=== PATIENT | female | born 1950 | race Caucasian/White ===

== ENCOUNTER → 2019-02-02 | Outpatient (CLI) | payer MEDICARE ==
[2017-02-07 14:51] VITALS: BP 106/52
[~2019-02-02] MED LIST: AMLO5TAB10 PO; BUDE0.5A NEB; BUPR100T7 PO; CEFP100T PO; ENAL20TA4 PO; HYDR50TA6 PO; IPRA3AMP29 NEB; MONT10TA9 PO; MULT-208 PO; PRED20TA PO
--- NOTE | 2019-02-02 16:16 | RAD ---
Chest, 2 views, 02/02/2019: HISTORY: Cough The heart size is normal. There is a calcified granuloma in the left upper lobe. There is an abnormal density projected along the posterior aspect of the right hilum. There is mild linear scarring or atelectasis in the lung bases. No pleural fluid is seen. Moderate hypertrophic spurring is present in the spine. IMPRESSION: Right parahilar mass raising the possibility of malignancy. CT scanning is suggested for further evaluation. Electronically signed by: Felipe Busby MD (02/02/2019 4:13 PM) [facility]
== END | disposition home or self-care (01) ==
LOC: RAD 14:20
PROVIDERS: ATTEND Family Medicine
DX: J84.10 Pulmonary fibrosis, unspecified (principal); J44.9 Chronic obstructive pulmonary disease, unspecified; M89.38 Hypertrophy of bone, other site; M46.00 Spinal enthesopathy, site unspecified
CPT/HCPCS: 71046

== ENCOUNTER → 2019-02-10 | Outpatient (CLI) | payer MEDICARE ==
[2017-02-07 14:51] VITALS: BP 106/52
[~2019-02-10] MED LIST changes: +CONTRAST GIVEN. MC PRN; +IOHEXOL 300 MG/ML 100ML VIAL. IV ONE
--- NOTE | 2019-02-10 11:35 | RAD ---
EXAM: CT Chest with IV contrast CLINICAL HISTORY: Abnormality on prior chest radiograph. Right hilar mass.. COMPARISON: Chest radiograph 02/02/2019, 02/02/2017, CT chest 02/05/2017. TECHNIQUE: CT of the chest following the administration of intravenous contrast. Axial, coronal and sagittal reformatted images were generated. ---PQRS compliance statement - One or more of the following individualized dose reduction techniques were utilized for this study: 1. Automated exposure control 2. Adjustment of the mA and/or kV according to patient size 3. Use of iterative reconstruction technique--- FINDINGS: CHEST: The heart is not enlarged. No pericardial effusion. Coronary artery calcifications are seen. No pleural effusion or pneumothorax. Subcarinal lymph node is enlarged measuring 2.4 x 1.2 cm. A relatively hypodense right hilar lymph node, measures 2.1 x 1.6 cm, possibly necrotic given the low density. No axillary lymphadenopathy. A right posterior hilar mass is seen measuring 4.2 x 5.8 x 5.4 cm (AP by transverse by craniocaudal). Associated groundglass opacity is seen surrounding this mass. Linear opacities in the lower lobes, lingula and middle lobe likely scarring/atelectasis. Background of emphysematous change. Central airways are otherwise patent. Left upper lobe calcified granuloma is seen. An 8 x 4 mm middle lobe lung nodule (series 2 image 40) is seen. The thyroid is grossly unremarkable. Visualized Upper abdomen: Cholecystectomy clips are seen. Relative hepatic hypoattenuation likely hepatic steatosis. Small splenule is seen. A 2.5 x 1.7 cm left adrenal nodule is seen. A 9 mm right adrenal nodule is seen. These both measure greater than expected for adenoma. Bilateral upper pole hypodense renal lesions are too small to characterize. Hypodense left hepatic lobe lesion is seen. Bones: Endplate osteophytes are seen. Multilevel degenerative changes of the spine are seen. IMPRESSION: 1. Right posterior hilar mass with groundglass opacities is suspicious for malignancy. Central low attenuation likely from central necrosis. This lesion would be amenable to percutaneous image guided biopsy. 2. Enlarged right hilar and mediastinal lymph nodes are seen. 3. Bilateral adrenal nodules are seen left greater than right. Given the lung mass, metastasis is a consideration. 4. Hypodense hepatic and renal lesions are too small to accurately characterize. Electronically signed by: Asif Vu MD (02/10/2019 11:32 AM) [id number]
== END | disposition home or self-care (01) ==
LOC: CT 10:20
PROVIDERS: ATTEND Family Medicine
DX: R91.1 Solitary pulmonary nodule (principal); J43.9 Emphysema, unspecified; J84.10 Pulmonary fibrosis, unspecified; E27.8 Other specified disorders of adrenal gland; N28.89 Other specified disorders of kidney and ureter; R59.0 Localized enlarged lymph nodes; M25.78 Osteophyte, vertebrae; M47.819 Spondylosis without myelopathy or radiculopathy, site unspecified; Z90.49 Acquired absence of other specified parts of digestive tract
CPT/HCPCS: 71260; Q9967

== ENCOUNTER → 2019-02-17 | Day surgery (SDC) | payer MEDICARE ==
[~2019-02-17] MED LIST changes: +ACET325T9 PO; +ALBUTEROL SULFATE 2.5 MG/3 ML NEBU. NEB PRN; -CONTRAST GIVEN. MC PRN; +EPINEPHrine 1 MG/ML VIAL INJ PRN; -IOHEXOL 300 MG/ML 100ML VIAL. IV ONE; +IV RINGERS,LACTATED 1000ML 1,000 ML IV SCH; +LIDOCAINE 1% Multi-Dose 20 ML VIAL. INJ PRN; +LIDOCAINE 1% PF 2 ML VIAL. ID PRN; +LIDOCAINE 2% PF 5 ML VIAL. ONE; +LIDOCAINE 2% VISCOUS 100 ML BOTTLE. MM PRN; +LIDOCAINE 4% TOPICAL 50 ML SOLUTION. MM PRN; +MIDAZOLAM HCL/PF 2 MG/2 ML VIAL. IV PRN; +MONT10TA49 PO; -MONT10TA9 PO; +PHENYLEPHRINE 10 MG/ML VIAL. ONE; +PROPOFOL 40 ML IV ONE; +fentaNYL PF VIAL 100 MCG/2 ML VIAL IV PRN
[2019-02-17 14:31] VITALS: BP 139/75
--- NOTE | 2019-02-17 18:38 | OP ---
DATE OF SURGERY: PROCEDURE: Bronchoscopy. INDICATION: Abnormal CT chest with hilar mass. DESCRIPTION OF PROCEDURE: Informed consent was obtained from the patient. All risks and benefits were explained. She agreed to proceed with the procedure. Propofol was used by Anesthesia for sedation. Bronch was introduced through the left nostril. The upper airway was passed. Vocal cords were reached. No abnormalities seen. Trachea was entered. No tracheal lesions seen. Michell was sharp. Right lung was first examined. No endobronchial lesions seen in the right upper lobe or right middle lobe. However, there was a smooth growth causing complete occlusion of the superior subsegment of the right lower lobe. Biopsies x 3 and cytology brush x 1 was performed from this area. Bronchoalveolar lavage was performed from the right middle lobe. The left lung appeared normal with no endobronchial lesions seen in the left upper lobe, lingula or left lower lobe. The patient tolerated the procedure well. IMPRESSION: 1. Smooth soft tissue growth seen at the superior subsegment of the right lower lobe causing complete occlusion. It could be carcinoid versus neoplasm versus an endobronchial granuloma. 2. Status post biopsies x 3 performed. Follow the results. 3. The patient to follow with Dr. James. If the biopsies are nondiagnostic, then adrenal gland biopsies can be performed next. MICHELLE BENAVIDEZ MD DR: RICK/nts JOB#: [id number] / [id number]
--- NOTE | 2019-02-21 12:06 | PATHOLOGY ---
[facility] Accession Number: [id number] . 01 Material submitted: . bronchus - BRONCH BIOPSY RLL SUPERIOR SEGMENT. Modifiers: right, lower lobe . 01 Clinical history: . Lung mass . 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 SEE COMMENT. . (SHA:[facility]; 02/21/2019) QMS/02/21/2019 . 02 Comment: The immunoperoxidase stains: . AE1/AE3: Positive LCA: Negative CD56: Positive TTF-1: Positive CK7: Positive Synaptophysin: non reactive . Based on these immunoperoxidase stains the findings are consistent with small cell carcinoma. . This case is also reviewed by Dr. Ruben Pacheco. . Dr Aretha James on 02/21/2019 at 11:30 am. . . (SHA:[facility]; 02/21/2019) . 02 Electronically signed: . Apolinar Lewis MD, Pathologist NPI- [id number] . 01 Gross description: . Received in formalin labeled "Rob, Becka, BBX RLL," and additionally labeled on the requisition as "superior segment," are 3 segments of pearce soft tissue measuring 0.5 x 0.5 x 0.1 cm in aggregate dimensions and ranging from 0.1 to 0.3 cm in maximum dimension. The specimen is submitted entirely in cassette A1. (TSD; 02/17/2019) TOB/TOB . 02 Pathologist provided ICD-10: C34.31 . 02 CPT . 279452, I29235, O63870 Specimen Comment: A courtesy copy of this report has been sent to Specimen Comment: [phone], . Specimen Comment: Report sent to / DR NELSON Performed at: 01 [facility] [address], [place], [place] [id number] MD Alexander Cuellar MD Phone: [phone] Performed at: 02 [facility] [address] [place], [place] [id number] MD Ruben Pacheco MD Phone: [phone]
--- NOTE | 2019-02-21 16:09 | PATHOLOGY ---
Note [facility] Accession Number: [id number] TESTS RESULT FLAG UNITS REF RANGE LAB Clinician Provided Cytology Information No. of containers..01 Other (Miscellaneous) Source: RML BAL DIAGNOSIS: RML BAL INCONCLUSIVE. COMMENT, FEW ATYPICAL CELLS PRESENT. NOT DIAGNOSTIC. Signed out by: Apolinar Lewis MD, Pathologist NPI- [id number] Performed by: Yenifer Cruz, Rf Engineer ([facility]) Gross description: 01 1ML, COLORLESS, CLEAR /LCS FLAG LEGEND: L-Low Normal,H-High Normal,LL-Alert Low,HH-Alert High <-Panic Low,>-Panic High,A-Abnormal,AA-Critical Abnormal Performed at: [address] [place] [address] Alexander Cuellar MD, 02 [facility] [address] [place] [address] Ruben Pacheco MD, Specimen Comment: A courtesy copy of this report has been sent to Specimen Comment: [phone], . Specimen Comment: Report sent to DR BENAVIDEZ / DR NELSON Specimen Comment: A duplicate report has been generated due to demographic updates. Performed at: [address] [place] [address] [address], [place], [place] [id number] MD Alexander Cuellar MD Phone: [phone]
--- NOTE | 2019-02-21 16:09 | PATHOLOGY ---
Note [facility] Accession Number: [id number] TESTS RESULT FLAG UNITS REF RANGE LAB Clinician Provided Cytology Information No. of containers..01 Other (Miscellaneous) Source: [A] 01 CYTO BRUSH TIP DIAGNOSIS: [A] 02 CYTO BRUSH TIP SUSPICIOUS FOR MALIGNANCY. COMMENT, MALIGNANT APPEARING SMALL CELLS SEEN CONSISTENT WITH SMALL CELL CARCINOMA CORRELATED WITH SURGICAL BIOPSY AND DISCUSSED WITH DR. ZAMBRANO ON 02/21/2019 AT 10AM. Signed out by: 02 Apolinar Lewis MD, Pathologist NPI- [id number] Performed by: Yenifer Cruz, K9 Handler ([facility]) Gross description: 01 45ML, COLORLESS, CLEAR /LCS FLAG LEGEND: L-Low Normal,H-High Normal,LL-Alert Low,HH-Alert High <-Panic Low,>-Panic High,A-Abnormal,AA-Critical Abnormal Performed at: [facility] [address] [place] [address] Alexander Cuellar MD, 02 [facility] [address] [place] [address] Ruben Pacheco MD, Specimen Comment: A courtesy copy of this report has been sent to Specimen Comment: [phone], . Specimen Comment: Report sent to / DR NELSON Specimen Comment: A duplicate report has been generated due to demographic updates. Performed at: 01 [facility] [address], [place], [place] [id number] MD Alexander Cuellar MD Phone: [phone]
--- NOTE | 2019-02-21 16:09 | PATHOLOGY ---
Note [facility] Accession Number: [id number] TESTS RESULT FLAG UNITS REF RANGE LAB Clinician Provided Cytology Information No. of containers..01 Slide Source: [A] 01 RLL BRONCH BRUSHING DIAGNOSIS: [A] 02 RLL BRONCH BRUSHING SUSPICIOUS FOR MALIGNANCY. COMMENT, FEW SMALL ROUND CELLS SEEN SUSPICIOUS FOR MALIGNANCY. CORRELATE WITH SURGICAL BIOPSY. Signed out by: 02 Apolinar Lewis MD, Pathologist NPI- [id number] Performed by: 01 Yenifer Cruz, Materials Supervisor ([facility]) FLAG LEGEND: L-Low Normal,H-High Normal,LL-Alert Low,HH-Alert High <-Panic Low,>-Panic High,A-Abnormal,AA-Critical Abnormal Performed at: [address] [place] [address] Alexander Cuellar MD, 02 [facility] [address] [place] [address] Ruben Pacehco MD, Specimen Comment: A courtesy copy of this report has been sent to Specimen Comment: [phone], . Specimen Comment: Report sent to DR BENAVIDEZ / DR NELSON Specimen Comment: A duplicate report has been generated due to demographic updates. Performed at: [address] [place] [address] [address], [place], [place] [id number] MD Alexander Cuellar MD Phone: [phone]
== END | disposition home or self-care (01) ==
LOC: SURG 12:01
PROVIDERS: ATTEND Internal Medicine Critical Care Medicine
DX: J98.4 Other disorders of lung (principal); R91.1 Solitary pulmonary nodule; J44.9 Chronic obstructive pulmonary disease, unspecified; I10 Essential (primary) hypertension; Z87.891 Personal history of nicotine dependence; Z98.890 Other specified postprocedural states
CPT/HCPCS: 31623; 31624; 31625; 36415; 87070; 87205; 88104; 88112; 88305; 88341; 88342; 94640; J0171; J2001; J2704; J7613; 31622

== ENCOUNTER → 2019-02-25 | Outpatient (CLI) | payer MEDICARE ==
[2019-02-17 14:31] VITALS: BP 139/75
[~2019-02-25] MED LIST changes: -ACET325T9 PO; -ALBUTEROL SULFATE 2.5 MG/3 ML NEBU. NEB PRN; -EPINEPHrine 1 MG/ML VIAL INJ PRN; +GADOTERATE 7.5 MMOL/15ML VIAL. IVP ONE; -IV RINGERS,LACTATED 1000ML 1,000 ML IV SCH; -LIDOCAINE 1% Multi-Dose 20 ML VIAL. INJ PRN; -LIDOCAINE 1% PF 2 ML VIAL. ID PRN; -LIDOCAINE 2% PF 5 ML VIAL. ONE; -LIDOCAINE 2% VISCOUS 100 ML BOTTLE. MM PRN; -LIDOCAINE 4% TOPICAL 50 ML SOLUTION. MM PRN; -MIDAZOLAM HCL/PF 2 MG/2 ML VIAL. IV PRN; -MONT10TA49 PO; +MONT10TA9 PO; -PHENYLEPHRINE 10 MG/ML VIAL. ONE; -PROPOFOL 40 ML IV ONE; -fentaNYL PF VIAL 100 MCG/2 ML VIAL IV PRN
--- NOTE | 2019-02-25 10:19 | RAD ---
MRI of the Brain without and with Contrast 02/25/2019 Clinical History: Metastatic lung cancer. Technique: Unenhanced T1-weighted sagittal and axial and FLAIR, T2-weighted, gradient echo and diffusion-weighted axial images of the brain were obtained. After the intravenous administration of 19 cc of Dotarem, enhanced T1-weighted axial, sagittal and coronal images of the brain were obtained. Findings: There is generalized parenchymal atrophy. Patchy and several small focal areas of abnormally increased signal intensity are seen within the periventricular and subcortical white matter of both cerebral hemispheres along with the gregory on the FLAIR and T2-weighted images consistent with areas of small vessel ischemic disease. No acute parenchymal abnormality is seen. No abnormal area of contrast enhancement is noted. No extra-axial fluid collection is seen. There is no MRI evidence of acute ischemia/infarction. Mild mucosal thickening is seen scattered throughout the paranasal sinuses. There is a small left mastoid effusion. Normal flow voids are seen within the major vascular structures surrounding the brain parenchyma. Impression: No acute parenchymal abnormality is seen. There is no MRI evidence of metastatic disease involving the brain parenchyma. Electronically signed by: Kale Albert MD (02/25/2019 10:17 AM) [facility]
== END | disposition home or self-care (01) ==
LOC: MRI 08:30
PROVIDERS: ATTEND Internal Medicine Hematology & Oncology
DX: G31.9 Degenerative disease of nervous system, unspecified (principal); C34.90 Malignant neoplasm of unspecified part of unspecified bronchus or lung
CPT/HCPCS: 70553; A9575

== ENCOUNTER → 2019-03-10 | Outpatient (CLI) | payer MEDICARE ==
[2019-02-17 14:31] VITALS: BP 139/75
[~2019-03-10] MED LIST changes: -GADOTERATE 7.5 MMOL/15ML VIAL. IVP ONE; +MONT10TA49 PO; -MONT10TA9 PO
--- NOTE | 2019-03-10 12:53 | RAD ---
FDG tumor localization scan, PET/CT, 03/10/2019: HISTORY: Lung mass Following IV injection of 15.3 mCi of 18 F-FDG, imaging was performed from the skull base to the proximal thighs. The noncontrast CT component was performed for attenuation correction and anatomic localization purposes rather than for primary diagnosis. The patient's blood glucose level at the time of injection was 152 MG/DL. Physiologic activity is present in the neck. No hypermetabolic neck lesion is identified. The patient's known large 5.8 cm right lower lobe mass along the posterior aspect of the right hilum is hypermetabolic demonstrating a maximum SUV of 10.9. There appears to be direct extension into the mediastinum in the azygos esophageal region. There is nearby subcarinal adenopathy with a maximum SUV of 5.5. There is increased FDG uptake more superiorly in the right hilum compatible with adenopathy. There is a smaller focus of slightly increased activity in the azygos/paratracheal region. No other abnormal pulmonary FDG uptake is seen. Normal GI tract and urinary tract activity is present in the abdomen and pelvis. No hypermetabolic abdominal or pelvic lesion is identified. The CT component demonstrates a left adrenal nodule which is not hypermetabolic. On the noncontrast CT study demonstrates an internal CT number of 8 Hounsfield units. The findings are compatible with a benign adenoma. Slight thickening of the right adrenal gland is also not hypermetabolic. IMPRESSION: 1. Hypermetabolic right lower lobe pulmonary mass compatible with a primary lung malignancy with right hilar and mediastinum hypermetabolic adenopathy.. 2. Small bilateral adrenal nodules are not hypermetabolic suggesting a benign etiology.
== END | disposition home or self-care (01) ==
LOC: PETSC 09:00
PROVIDERS: ATTEND Internal Medicine Pulmonary Disease
DX: R91.8 Other nonspecific abnormal finding of lung field (principal); E27.9 Disorder of adrenal gland, unspecified
CPT/HCPCS: 78815; A9552

== ENCOUNTER → 2019-06-16 | Outpatient (CLI) | payer MEDICARE ==
[2019-03-20 15:00] VITALS: BP 156/85
[~2019-06-16] MED LIST changes: +ACET325T9 PO; +HYDR-3164 PO; +OMEP40CA5 PO
--- NOTE | 2019-06-17 13:31 | RAD ---
Examination: PET W CT SKULL TO MIDTHIGH History: Lung cancer restaging Comparison/Correlation: 03/10/2019 PET/CT exam skull base to proximal thigh FINDINGS: Net dose 16.2 mCi F-18 FDG was administered intravenously for purposes of PET/CT exam. Blood glucose level at the time of radiotracer administration was 158 mg/dL. Imaging was performed from the skull base to the proximal thighs. Hepatic reference uptake is SUV max of 2.6 . Uptake of radiotracer involving the head and neck is unremarkable. The right lower lobe posterior to the right hilum, there is a low-attenuation mass measuring 2.6 cm x 2.4 cm. The SUV max is 3. No new pulmonary nodules or masses. No enlarged thoracic lymph nodes or suspicious uptake involving the mediastinum or gayle otherwise. Uptake of radiotracer involving the abdomen and pelvis overall unremarkable. There is a small focus of uptake involving the right hepatic lobe with SUV max up to 4 at the gallbladder fossa that is likely artifactual but is not seen on the prior exam. No corresponding CT finding on noncontrast images provided. This finding is evident on axial 78 of series 603. Cholecystectomy noted. Fatty infiltration of the liver is present. No abnormal uptake identified involving adrenal gland nodules. Adrenal gland nodules have remained stable with the appearance of benign adenoma. No radiopaque collecting system calculi. Diverticulosis of the colon is evident. Degenerative changes of cervical spine are noted. IMPRESSION: Significant decrease in size and uptake of the right lower lobe mass by approximately 3 cm diameter since the prior PET/CT exam of 03/17/2019. Previously seen lymph nodes with abnormal uptake are no longer evident at the right hilum. Very small focus of uptake involving the liver at the gallbladder fossa is probably artifactual but not seen on the prior PET/CT exam. Further evaluation with CT abdomen with contrast according to liver protocol may be performed for more definitive assessment. PQRS Compliance Statement: One or more of the following individualized dose reduction techniques were utilized for this examination: 1. Automated exposure control 2. Adjustment of the mA and/or kV according to patient size 3. Use of iterative reconstruction technique Electronically signed by: John Alvares MD (06/17/2019 1:28 PM) [facility]
== END | disposition home or self-care (01) ==
LOC: PETSC 09:39
PROVIDERS: ATTEND Internal Medicine Hematology & Oncology
DX: C34.31 Malignant neoplasm of lower lobe, right bronchus or lung (principal); R19.03 Right lower quadrant abdominal swelling, mass and lump; M62.89 Other specified disorders of muscle; Z90.49 Acquired absence of other specified parts of digestive tract
CPT/HCPCS: 78815; A9552

== ENCOUNTER 2019-06-17 12:08 | Emergency (ER) | payer MEDICARE, MEDICAID ==
[~2019-06-17] VITALS: Ht 157.5 cm; Wt 92.1 kg
[~2019-06-17 12:08] MED LIST changes: +OMEP40CA45 PO; -OMEP40CA5 PO
[2019-06-17] MEDS ORDERED: KETOROLAC 15 MG/ML VIAL. IV ONE (13:30)
[2019-06-17] MEDS ORDERED: diphenhydrAMINE 50 MG/ML VIAL IVP ONE (13:30)
[2019-06-17] MEDS ORDERED: METOCLOPRAMIDE HCL 10 MG/2 ML VIAL. IV ONE (13:30)
[2019-06-17 13:35] LABS: BASO % 0 % (0-3); EOS # 0.1 x10^3/uL (0.0-0.7); EOS % 1 % (0-3); HEMATOCRIT 41.6 % (36.0-47.0); HEMOGLOBIN 13.8 g/dL (12.0-15.5); LYMPH # 0.4 x10^3/uL (1.0-4.8); LYMPH % 5 % (24-48); MEAN CORPUSCULAR HEMOGLOBIN 35 pg (25-35); MEAN CORPUSCULAR HGB CONC 33 g/dL (31-37); MEAN CORPUSCULAR VOLUME 106 fL (79-100); MONO # 0.4 x10^3/uL (0.0-1.1); MONO % 5 % (0-9); NEUT # 7.7 x10^3/uL (1.8-7.7); NEUT % 90 % (31-73); PLATELET COUNT 267 x10^3/uL (140-400); RED BLOOD COUNT 3.92 x10^6/uL (3.50-5.40); RED CELL DISTRIBUTION WIDTH 15.8 % (11.5-14.5); WHITE BLOOD COUNT 8.6 x10^3/uL (4.0-11.0)
--- NOTE | 2019-06-17 13:40 | PHYS DOC ---
Past Medical History Past Medical History: Cancer, COPD, Hypertension Additional Past Medical Histor: small cell lung cancer Past Surgical History: Cholecystectomy Alcohol Use: None Drug Use: None Adult General Chief Complaint Chief Complaint: HEADACHE HPI HPI Patient is a 68 year old [female] who presents with [right sided headache started last night. Patient reports she has had one headache this bad in the past, reports a specimen 2 years ago when she was in [place], and she had a seizure at that time. States she has been undergoing treatment for lung cancer, had a PET scan on her chest yesterday. States as the day has progressed he is continuing to have some increased discomfort to the right side of her head, with some photosensitivity. Reports she does not usually get headaches. Denies any fevers. Denies any is in illness. Denies any other concerns today, does reports because the nauseous. Reports she has never had a seizure since: She had 2 years ago. Does reports she called her PCP today, was advised to come to the ER to be evaluated Review of Systems Review of Systems Constitutional: Denies fever or chills [] Eyes: Denies change in visual acuity, redness, or eye pain does report photosensitivity to right eye[] HENT: Denies nasal congestion or sore throat [] Respiratory: Denies cough or shortness of breath [] Cardiovascular: No additional information not addressed in HPI [] GI: Denies abdominal pain, vomiting, bloody stools or diarrhea does reports she has felt a little nauseous today[] : Denies dysuria or hematuria [] Musculoskeletal: Denies back pain or joint pain [] Integument: Denies rash or skin lesions [] Neurologic: Reports headache, denies focal weakness or sensory changes [] Endocrine: Denies polyuria or polydipsia [] All other systems were reviewed and found to be within normal limits, except as documented in this note. Current Medications Current Medications Current Medications Medications (Trade) Dose Ordered Sig/Elisabet Start Time Stop Time Status Last Admin Dose Admin Diphenhydramine HCl (Benadryl) 25 mg 1X ONCE 06/17/19 13:30 06/17/19 13:34 DC 06/17/19 14:03 25 MG Ketorolac Tromethamine (Toradol 15mg Vial) 15 mg 1X ONCE 06/17/19 13:30 06/17/19 13:34 DC 06/17/19 14:03 15 MG Metoclopramide HCl (Reglan Vial) 10 mg 1X ONCE 06/17/19 13:30 06/17/19 13:34 DC 06/17/19 14:03 10 MG Allergies Allergies Allergies Coded Allergies Type Severity Reaction Last Updated Verified No Known Drug Allergies 02/17/19 No Physical Exam Physical Exam Constitutional: Well developed, well nourished, no acute distress, non-toxic appearance. [] HENT: Normocephalic, atraumatic, bilateral external ears normal, oropharynx moist, no oral exudates, nose normal. [] Eyes: PERRLA, EOMI, conjunctiva normal, no discharge. [] Neck: Normal range of motion, no tenderness, supple, no stridor. [] Cardiovascular:Heart rate regular rhythm, no murmur [] Lungs & Thorax: Bilateral breath sounds clear to auscultation [] Abdomen: Bowel sounds normal, soft, no tenderness, no masses, no pulsatile masses. [] Skin: Warm, dry, no erythema, no rash. [] Back: No tenderness, no CVA tenderness. [] Extremities: No tenderness, no cyanosis, no clubbing, ROM intact, no edema. [] Neurologic: Alert and oriented X 3, normal motor function, normal sensory function, no focal deficits noted. [] Psychologic: Affect normal, judgement normal, mood normal. [] Current Patient Data Vital Signs Vital Signs Date Time Temp Pulse Resp B/P (MAP) Pulse Ox O2 Delivery O2 Flow Rate FiO2 06/17/19 14:12 88 21 93 06/17/19 12:35 97.5 129/62 (84) Nasal Cannula 3.0 97.5 Lab Values Laboratory Tests Test 06/17/19 13:25 White Blood Count 8.6 x10^3/uL (4.0-11.0) Red Blood Count 3.92 x10^6/uL (3.50-5.40) Hemoglobin 13.8 g/dL (12.0-15.5) Hematocrit 41.6 % (36.0-47.0) Mean Corpuscular Volume 106 fL (79-100) H Mean Corpuscular Hemoglobin 35 pg (25-35) Mean Corpuscular Hemoglobin Concent 33 g/dL (31-37) Red Cell Distribution Width 15.8 % (11.5-14.5) H Platelet Count 267 x10^3/uL (140-400) Neutrophils (%) (Auto) 90 % (31-73) H Lymphocytes (%) (Auto) 5 % (24-48) L Monocytes (%) (Auto) 5 % (0-9) Eosinophils (%) (Auto) 1 % (0-3) Basophils (%) (Auto) 0 % (0-3) Neutrophils # (Auto) 7.7 x10^3/uL (1.8-7.7) Lymphocytes # (Auto) 0.4 x10^3/uL (1.0-4.8) L Monocytes # (Auto) 0.4 x10^3/uL (0.0-1.1) Eosinophils # (Auto) 0.1 x10^3/uL (0.0-0.7) Basophils # (Auto) 0.0 x10^3/uL (0.0-0.2) Sodium Level 143 mmol/L (136-145) Potassium Level 4.3 mmol/L (3.5-5.1) Chloride Level 106 mmol/L (98-107) Carbon Dioxide Level 32 mmol/L (21-32) Anion Gap 5 (6-14) L Blood Urea Nitrogen 11 mg/dL (7-20) Creatinine 0.8 mg/dL (0.6-1.0) Estimated GFR (Cockcroft-Gault) 71.1 BUN/Creatinine Ratio 14 (6-20) Glucose Level 131 mg/dL (70-99) H Calcium Level 9.4 mg/dL (8.5-10.1) Total Bilirubin 0.1 mg/dL (0.2-1.0) L Aspartate Amino Transferase (AST) 22 U/L (15-37) Alanine Aminotransferase (ALT) 29 U/L (14-59) Alkaline Phosphatase 83 U/L (46-116) Total Protein 7.3 g/dL (6.4-8.2) Albumin 3.8 g/dL (3.4-5.0) Albumin/Globulin Ratio 1.1 (1.0-1.7) Laboratory Tests 06/17/19 13:25 Laboratory Tests 06/17/19 13:25 EKG EKG [] Radiology/Procedures Radiology/Procedures []Findings: Axial images of the head were obtained without contrast. Ventricles are normal size. No midline shift or mass effect. Punctate density involving the superior aspect of the third ventricle is present and somewhat smaller size compared to previous exam. It is not definitely a colloid cyst considering its location. Small left maxillary sinus retention cyst is noted. The globes and optic nerves are unremarkable. Impression: No suspicious process. PQRS Compliance Statement: One or more of the following individualized dose reduction techniques were utilized for this examination: 1. Automated exposure control 2. Adjustment of the mA and/or kV according to patient size 3. Use of iterative reconstruction technique Electronically signed by: John Yanes MD (06/17/2019 2:05 PM) [facility] DICTATED and SIGNED BY: JOHN YANES MD DATE: 06/17/191404 Course & Med Decision Making Course & Med Decision Making Pertinent Labs and Imaging studies reviewed. (See chart for details) [following medications, patient reports she feels much better. States her headache is mostly gone, reports he feels that she is ready to go home at this time. Discussed reports a follow-up patient, patient and with no further questions or concerns] Dragon Disclaimer Dragon Disclaimer This electronic medical record was generated, in whole or in part, using a voice recognition dictation system. Departure Departure Impression: Primary Impression: Headache Disposition: 01 HOME, SELF-CARE Condition: GOOD Referrals: JULIETH NELSON MD (PCP) Patient Instructions: Tension Headache Additional Instructions: As we discussed, your results today showed nothing suspicious on your CAT scan of her brain. Her blood work today looked very good. Make sure to follow up with her regular doctor, in the next couple days. It is hard to feel worse, come back to the ER Problem Qualifiers Primary Impression: Headache Headache type: tension-type Headache chronicity pattern: acute headache Intractability: not intractable Qualified Codes: G44.209 - Tension-type headache, unspecified, not intractable MEAGAN ROSS APRN Jun 17, 2019 13:40
--- NOTE | 2019-06-17 14:08 | RAD ---
Examination: CT HEAD WO CONTRAST History: Progressive worsening of headaches Comparison/Correlation: 01/30/2017 CT head without contrast Findings: Axial images of the head were obtained without contrast. Ventricles are normal size. No midline shift or mass effect. Punctate density involving the superior aspect of the third ventricle is present and somewhat smaller size compared to previous exam. It is not definitely a colloid cyst considering its location. Small left maxillary sinus retention cyst is noted. The globes and optic nerves are unremarkable. Impression: No suspicious process. PQRS Compliance Statement: One or more of the following individualized dose reduction techniques were utilized for this examination: 1. Automated exposure control 2. Adjustment of the mA and/or kV according to patient size 3. Use of iterative reconstruction technique Electronically signed by: John Alvares MD (06/17/2019 2:05 PM) [facility]
[2019-06-17 14:09] LABS: CALCIUM 9.4 mg/dL (8.5-10.1); CREATININE 0.8 mg/dL (0.6-1.0); GFR 71.1; POTASSIUM 4.3 mmol/L (3.5-5.1)
[2019-06-17 14:13] LABS: ALBUMIN 3.8 g/dL (3.4-5.0); ALBUMIN/GLOBULIN RATIO 1.1 (1.0-1.7); TOTAL BILIRUBIN 0.1 mg/dL (0.2-1.0); TOTAL PROTEIN 7.3 g/dL (6.4-8.2)
[2019-06-17 15:12] VITALS: BP 119/68
[2019-06-28] MEDS ORDERED: GLIM2TAB3 PO (10:33)
== END 2019-06-17 15:35 | disposition home or self-care (01) ==
LOC: ER 12:08
DX: G44.209 Tension-type headache, unspecified, not intractable (principal); J44.9 Chronic obstructive pulmonary disease, unspecified; I10 Essential (primary) hypertension
CPT/HCPCS: 36415; 70450; 80053; 85025; 96374; 96375; 99285; J1200; J1885; J2765

== ENCOUNTER → 2019-06-29 | Outpatient (CLI) | payer MEDICARE, MEDICAID ==
[2019-06-17 15:12] VITALS: BP 119/68
[~2019-06-29] MED LIST changes: +CONTRAST GIVEN. MC PRN; +GLIM2TAB3 PO; +IOHEXOL 300 MG/ML 100ML VIAL. IV ONE
--- NOTE | 2019-06-29 10:58 | RAD ---
PQRS Compliance Statement: One or more of the following individualized dose reduction techniques were utilized for this examination: 1. Automated exposure control 2. Adjustment of the mA and/or kV according to patient size 3. Use of iterative reconstruction technique PQRS Compliance Statement: One or more of the following individualized dose reduction techniques were utilized for this examination: 1. Automated exposure control 2. Adjustment of the mA and/or kV according to patient size 3. Use of iterative reconstruction technique CT abdomen with and without contrast 06/29/2019 11:00 AM INDICATION: Small cell lung cancer COMPARISON: PET/CT 06/16/2019 TECHNIQUE: Multiple axial CT images of the abdomen were obtained before and after the intravenous administration of 75 mL Omnipaque 300. Coronal and sagittal reformats are provided. FINDINGS: There is subsegmental atelectasis within the right middle lobe and left lung base. Mild hepatic steatosis. Liver, spleen and pancreas are otherwise normal in appearance. Gallbladder surgically absent. Stable left adrenal nodule measuring 2.1 x 1.8 cm. Stable right adrenal nodule measuring 1.4 x 1.2 cm. Findings have attenuation suggestive of a lipid rich adrenal adenoma on PET/CT. Abdominal aorta is ectatic with the infrarenal abdominal aorta measuring 2.6 x 2.2 cm. Calcified and noncalcified atheromatous plaque is noted. No pathologically enlarged lymph nodes are identified in abdomen. Kidneys enhance symmetrically. 1.9 cm simple cyst noted in the superior pole the left kidney. 2.8 cm simple cyst identified in the inferior pole the right kidney. 1.8 cm simple cyst in the superior pole the right kidney. No suspicious renal mass. No renal calculi or hydronephrosis. Small large bowel are normal in caliber. No evidence for bowel obstruction or inflammation. No suspicious osseous normality. IMPRESSION: No suspicious hepatic abnormality as queried by PET/CT. Mild hepatic steatosis. Electronically signed by: Stella Olivera MD (06/29/2019 10:54 AM) [facility]
== END | disposition home or self-care (01) ==
LOC: CT 09:50
PROVIDERS: ATTEND Internal Medicine Hematology & Oncology
DX: C34.90 Malignant neoplasm of unspecified part of unspecified bronchus or lung (principal); K76.0 Fatty (change of) liver, not elsewhere classified; N28.1 Cyst of kidney, acquired; J98.11 Atelectasis; J44.9 Chronic obstructive pulmonary disease, unspecified; I10 Essential (primary) hypertension; Z90.49 Acquired absence of other specified parts of digestive tract
CPT/HCPCS: 74170; Q9967

== ENCOUNTER 2019-09-16 07:52 | Inpatient (IN) | payer MEDICARE, OTHER ==
[~2019-09-16] VITALS: Ht 157.5 cm; Wt 92.1 kg
[~2019-09-16 07:52] MED LIST changes: -CONTRAST GIVEN. MC PRN; -GLIM2TAB3 PO; +GLIM2TAB7 PO; -IOHEXOL 300 MG/ML 100ML VIAL. IV ONE
--- NOTE | 2019-09-16 08:44 | PHYS DOC ---
Past Medical History Past Medical History: Cancer, COPD, Diabetes-Type II, Hypertension Additional Past Medical Histor: small cell lung cancer Past Surgical History: Cholecystectomy Alcohol Use: None Drug Use: None Adult General Chief Complaint Chief Complaint: BACK PAIN OR INJURY HPI HPI Patient is a 69 year old male with history of small cell lung cancer currently in remission who presents with acute onset right lower lumbar paravertebral back pain radiating posteriorly to right leg. Symptom onset was one week ago. Pain is worse yesterday after patient fell landing on her buttocks. Reports increased pain with ambulation. No motor weakness or loss of sensation. No urinary frequency urgency or dysuria. No nausea vomiting. No fever chills or sweats. No other acute symptoms or complaints Patient takes Tylenol for pain relief along with an occasional hydrocodone. [] Review of Systems Review of Systems ROS as per HPI All other systems were reviewed and found to be within normal limits, except as documented in this note. Current Medications Current Medications Current Medications Medications (Trade) Dose Ordered Sig/Elisabet Start Time Stop Time Status Last Admin Dose Admin Morphine Sulfate (Morphine Sulfate) 10 mg 1X ONCE 09/16/19 09:00 09/16/19 09:01 DC 09/16/19 09:22 10 MG Ondansetron HCl (Zofran Odt) 4 mg 1X ONCE 09/16/19 09:00 09/16/19 09:01 DC 09/16/19 09:25 4 MG Orphenadrine Citrate (Norflex) 60 mg 1X ONCE 09/16/19 09:00 09/16/19 09:01 DC 09/16/19 09:25 60 MG Allergies Allergies Allergies Coded Allergies Type Severity Reaction Last Updated Verified No Known Drug Allergies 02/17/19 No Physical Exam Physical Exam Constitutional: Well developed, well nourished, no acute distress, non-toxic appearance. [] HENT: Normocephalic, atraumatic, bilateral external ears normal, oropharynx moist, nose normal. [] Eyes: PERRLA, EOMI, conjunctiva normal, no discharge. [] Neck: Normal range of motion, no tenderness, supple, no stridor. [] Cardiovascular:Heart rate regular rhythm, no murmur [] Lungs & Thorax: Bilateral breath sounds clear to auscultation [] Abdomen: Bowel sounds normal, soft, no tenderness. [] Skin: Warm, dry. [] Back: R lower lumbar back pain/tenderness to palpation, no CVA tenderness. [] Extremities: No tenderness, trace edema. [] Neurologic: Alert and oriented X 3,lower extremity, normal motor function, normal sensory function, no focal deficits noted. [] Psychologic: Affect normal, judgement normal, mood normal. [] Current Patient Data Vital Signs Vital Signs Date Time Temp Pulse Resp B/P (MAP) Pulse Ox O2 Delivery O2 Flow Rate FiO2 09/16/19 09:22 18 09/16/19 08:08 98.6 106 140/67 (91) 91 Nasal Cannula 2.0 98.6 Lab Values Laboratory Tests Test 09/16/19 08:40 Urine Collection Type Unknown Urine Color Yellow Urine Clarity Clear Urine pH 5.5 Urine Specific [place] 1.015 Urine Protein 100 mg/dL (NEG-TRACE) Urine Glucose (UA) Negative mg/dL (NEG) Urine Ketones (Stick) Negative mg/dL (NEG) Urine Blood Negative (NEG) Urine Nitrite Negative (NEG) Urine Bilirubin Negative (NEG) Urine Urobilinogen Dipstick 0.2 mg/dL (0.2 mg/dL) Urine Leukocyte Esterase Negative (NEG) Urine RBC Rare /HPF (0-2) Urine WBC 1-4 /HPF (0-4) Urine Squamous Epithelial Cells Few /LPF Urine Bacteria Few /HPF (0-FEW) Urine Hyaline Casts Few /HPF Urine Mucus Mod /LPF EKG EKG [EKG: reviewed] Radiology/Procedures Radiology/Procedures [CT lumbar spine: Radiology report reviewed] Course & Med Decision Making Course & Med Decision Making Pertinent Labs and Imaging studies reviewed. (See chart for details) [Patient oxygen dependent requiring high dose narcotic paint medications. Newly diagnosed lytic lesions involving lumbar spine with tickler leg complaints. No motor weakness. Case reviewed with Dr. Dunbar business solutions director for oncology. Recommendations are hospital admission with radiation oncology consult. Dr. Nelson to admit. ] Dragon Disclaimer Dragon Disclaimer This electronic medical record was generated, in whole or in part, using a voice recognition dictation system. Departure Departure Impression: Primary Impression: Lumbar radiculopathy, acute Additional Impression: Metastatic disease Disposition: HOME, SELF-CARE Condition: IMPROVED Referrals: JULIETH NELSON MD (PCP) Problem Qualifiers ANNIE SHANKAR DO Sep 16, 2019 08:43
[2019-09-16 08:53] LABS: BILIRUBIN,URINE NEGATIVE (NEG); CLARITY,URINE CLEAR; COLOR,URINE YELLOW; NITRITE,URINE NEGATIVE (NEG); PH,URINE 5.5; PROTEIN,URINE 100 mg/dL (NEG-TRACE); UROBILINOGEN,URINE 0.2 mg/dL (0.2 mg/dL)
[2019-09-16] MEDS ORDERED: ONDANSETRON ODT 4 MG TAB.RAPDIS. PO ONE (09:00)
[2019-09-16] MEDS ORDERED: ORPHENADRINE CITRATE 60 MG/2 ML VIAL. IM ONE (09:00)
[2019-09-16] MEDS ORDERED: MORPHINE SULFATE 10 MG/ML VIAL. IM ONE (09:00)
[2019-09-16 09:06] LABS: BACTERIA,URINE FEW /HPF (0-FEW); HYALINE CASTS, URINE FEW /HPF; RBC,URINE RARE /HPF (0-2); SQUAMOUS EPITHELIAL CELL,UR FEW /LPF
--- NOTE | 2019-09-16 10:02 | RAD ---
EXAM: CT lumbar spine without contrast. HISTORY: Low back pain, malignancy, fall. TECHNIQUE: CT of the lumbar spine was performed without intravenous contrast. One or more of the following individualized dose reduction techniques were utilized for this examination: 1. Automated exposure control. 2. Adjustment of the mA and/or kV according to patient size. 3. Use of iterative reconstruction technique. COMPARISON: 06/29/2019. FINDINGS: A cyst at the left renal upper pole measures 1.8 cm. There are moderate atherosclerotic calcifications. Sigmoid diverticulosis is moderate. There is a minimal lumbar levocurvature. Osteopenia is at least mild. Degenerative disc disease is mild from L3 through S1. There is endplate remodeling more superiorly without loss of disc height. There is a lucent lesion along the right aspect of the superior endplate of L3 measuring 11 x 8 mm. This was not clearly seen on the prior study and a metastasis cannot be excluded. Another lucent region along the right superior endplate of L4 is less well-defined. Vertebral body heights are maintained, and no fractures are identified. At L1-2, there is mild bilateral neural foraminal stenosis. At L2-3, there is a small posterior disc bulge. Facet and ligamentum flavum hypertrophy is mild to moderate. There is no clear stenosis. At L3-4, there is a small posterior disc bulge. Facet and ligamentum flavum hypertrophy is mild to moderate. There is no clear stenosis. At L4-5, there is a small posterior disc bulge. There is no clear stenosis. At L5-S1, there is a moderate posterior disc bulge which is partially calcified. Neural foraminal stenosis is mild to moderate on the left. There is at least mild left lateral recess stenosis with some mass effect on the left S1 nerve root. IMPRESSION: 1. Lytic lesions at the superior end plates of L3 and L4 appear new since 06/29/2019 and are concerning for metastatic disease. MRI is more specific if there is persistent concern. 2. No pathologic fracture. Mild degenerative changes as above. Electronically signed by: Héctor Barnes MD (09/16/2019 10:00 AM) [facility]
[2019-09-16 12:20] VITALS: BP 101/54
[2019-09-16] MEDS ORDERED: MORPHINE ER 15 MG TABLET.ER PO ONE (13:15)
[2019-09-16 13:27] LABS: BASO % 0 % (0-3); EOS # 0.1 x10^3/uL (0.0-0.7); EOS % 1 % (0-3); HEMATOCRIT 41.9 % (36.0-47.0); LYMPH # 0.7 x10^3/uL (1.0-4.8); LYMPH % 9 % (24-48); MEAN CORPUSCULAR HEMOGLOBIN 33 pg (25-35); MEAN CORPUSCULAR HGB CONC 33 g/dL (31-37); MEAN CORPUSCULAR VOLUME 98 fL (79-100); MONO # 0.4 x10^3/uL (0.0-1.1); MONO % 5 % (0-9); NEUT # 6.9 x10^3/uL (1.8-7.7); NEUT % 85 % (31-73); PLATELET COUNT 312 x10^3/uL (140-400); RED BLOOD COUNT 4.29 x10^6/uL (3.50-5.40); RED CELL DISTRIBUTION WIDTH 13.5 % (11.5-14.5); WHITE BLOOD COUNT 8.2 x10^3/uL (4.0-11.0)
[2019-09-16 13:31] LABS: CALCIUM 9.5 mg/dL (8.5-10.1); CREATININE 0.8 mg/dL (0.6-1.0); GFR 70.9; POTASSIUM 3.6 mmol/L (3.5-5.1)
[2019-09-16 13:37] LABS: ALBUMIN 3.8 g/dL (3.4-5.0); ALBUMIN/GLOBULIN RATIO 1.1 (1.0-1.7); TOTAL BILIRUBIN 0.9 mg/dL (0.2-1.0); TOTAL PROTEIN 7.4 g/dL (6.4-8.2)
[2019-09-16 14:03] LABS: % EOS 1 % (0-5); % LYMPHS 5 % (24-48); % MONOS 5 % (0-10); % SEGS 89 % (35-66); PLT ESTIMATE ADEQUATE (ADEQUATE)
[2019-09-16] MEDS: MORPHINE IR 15 MG TABLET PO PRN (14:32)
[2019-09-16 15:00] VITALS: BP 102/60
[2019-09-16] MEDS ORDERED: fentaNYL PF VIAL 100 MCG/2 ML VIAL IVP PRN (16:45)
[2019-09-16] MEDS: fentaNYL PF VIAL 100 MCG/2 ML VIAL IVP PRN (16:45)
--- NOTE | 2019-09-16 17:10 | PDOC2 ---
CONSULT Date of Consult Date of Consult DATE: 09/16/19 TIME: 16:58 Reason for consultation: Recurrent small cell lung cancer Consult: Hematology oncology, Dr. Dilshad Dunbar History of present illness: She is a 69-year-old female admitted with back pain, acute, severe, currently 8-1/2 out of 10, improved slightly with morphine IV in the ER, with pain extending radicular down the right leg when she stands, no problems with bowel or bladder function currently, the MS Contin and MSIR have not helped much yet, she has recently been ordered fentanyl, the pain is severe and causes a headache which causes nausea and she is sad that now unfortunately in the ER today L3/4 lytic lesions were noted without fracture but concerning for recurrent small cell. Dr Mckinnon has seen her and plans palliative radiotherapy to begin on Thursday. Past medical history: DM2 Tobacco quit in 2017 Hypertension Small cell lung cancer recurrent COPD on oxygen Past surgical history: Bronchoscopy Adrenal biopsy Cholecystectomy Allergies: No known drug allergies Medications: See attached list Social history: Quit tobacco in 2017, single Family history: No lung cancer Review of systems: Headache, nausea, back pain, no weight loss, some numbness and tingling with the back pain, does have constipation intermittently, otherwise current 10 point review of systems negative. Physical exam: Vitals reviewed Gen.: Well-nourished and well-developed in no acute distress, though back pain with movement, alopecia HEENT: mucous membranes moist, head normocephalic atraumatic Neck: Supple, no lymphadenopathy Lymph nodes: No palpable lymphadenopathy neck or axilla Lungs: Breathing comfortably w/o e/o respiratory distress Abdomen: Soft, nontender, nondistended Extremities: No cyanosis or signif edema Skin: No obvious rashes or skin breakdown Neuro: Alert and oriented 3 Psych: Normal mood and affect Lab reviewed: White count 8.2, hemoglobin 14, platelets 312 Creatinine 0.8 AST of 219, ALT of 94, alkaline phosphatase of 240 Rads reviewed: L-spine CT shows new L3-4 lytic lesions without pathologic fracture Case discussed with: Patient, records reviewed in [facility], including labs and radiology, and discussed with Dr. Mckinnon, please see note for summary details. Assessment and Plan: She is a 69-year-old female with now recurrent small cell lung cancer unfortunately after completing carboplatin and etoposide 4 in Apr 2019 and pulm radiotherapy in May 2019, and PCI completed in Jun 2019. initially atezolizumab had been given for presumed adrenal metastasis though dc'd after adrenal biopsy negative, though now she has recurrence in less than 6 months from treatment completion. Back pain: MS Contin 15 twice a day with MSIR when necessary, fentanyl IV for severe pain, lidocaine patch ordered Recurrent small cell: Appreciate Dr. Mckinnon planning radiotherapy palliative to the L-spine on Thursday, will plan for CT chest abdomen and pelvis (she think about doing this on Thursday) with elevated hepatic enzymes and for assessment prior to beginning second line chemotherapy, she'll follow-up with Dr. Bowman as an outpatient after radiotherapy complete to consider second line chemotherapy History of constipation: We'll add prn's Disposition: After adequate pain control and radiotherapy has been initiated Thank you kindly for this consultation, and please do not hesitate to call with further questions. Current Problem List Problem List Problems Medical Problems: (1) Lumbar radiculopathy, acute Status: Acute (2) Metastatic disease Status: Acute Current Medications Current Medications Current Medications Morphine Sulfate (Morphine Sulfate) 10 mg 1X ONCE IM Last administered on 09/16/19at 09:22; Start 09/16/19 at 09:00; Stop 09/16/19 at 09:01; Status DC Ondansetron HCl (Zofran Odt) 4 mg 1X ONCE PO Last administered on 09/16/19at 09:25; Start 09/16/19 at 09:00; Stop 09/16/19 at 09:01; Status DC Orphenadrine Citrate (Norflex) 60 mg 1X ONCE IM Last administered on 09/16/19at 09:25; Start 09/16/19 at 09:00; Stop 09/16/19 at 09:01; Status DC Morphine Sulfate (Ms Contin) 15 mg BID PO ; Start 09/16/19 at 21:00 Morphine Sulfate (Morphine Ir) 15 mg PRN Q4HRS PRN PO PAIN Last administered on 09/16/19at 14:32; Start 09/16/19 at 13:15 Morphine Sulfate (Ms Contin) 15 mg 1X ONCE PO Last administered on 09/16/19at 13:42; Start 09/16/19 at 13:15; Stop 09/16/19 at 13:16; Status DC Fentanyl Citrate (Fentanyl 2ml Vial) 50 mcg PRN Q2HR PRN IVP MODERATE PAIN; Start 09/16/19 at 16:45 Fentanyl Citrate (Fentanyl 2ml Vial) 75 mcg PRN Q2HR PRN IVP SEVERE PAIN Last administered on 09/16/19at 16:45; Start 09/16/19 at 16:45 Active Scripts Active Reported Glimepiride 2 Mg Tablet 2 Mg PO DAILY [place] 5-325 Tablet (Acetaminophen/Hydrocodone Bitart) 1 Each Tablet 1 Tab PO PRN Q6HRS PRN Tylenol (Acetaminophen) 325 Mg Tablet 650 Mg PO PRN Q6HRS PRN Amlodipine Besylate 5 Mg Tablet 5 Mg PO BID Duoneb 0.5-3(2.5) Mg/3 Ml (Albuterol/Ipratropium) 3 Ml Ampul.neb 3 Ml NEB BID Allergies Allergies: Coded Allergies: No Known Drug Allergies (Unverified , 02/17/19) Vitals VITALS Vital Signs Date Time Temp Pulse Resp B/P (MAP) Pulse Ox O2 Delivery O2 Flow Rate FiO2 09/16/19 16:45 Room Air 09/16/19 15:32 2.0 09/16/19 15:00 99.0 84 18 102/60 (74) 91 99.0 Labs Labs Laboratory Tests Test 09/16/19 08:40 09/16/19 13:00 Urine Collection Type Unknown Urine Color Yellow Urine Clarity Clear Urine pH 5.5 Urine Specific [place] 1.015 Urine Protein 100 mg/dL (NEG-TRACE) Urine Glucose (UA) Negative mg/dL (NEG) Urine Ketones (Stick) Negative mg/dL (NEG) Urine Blood Negative (NEG) Urine Nitrite Negative (NEG) Urine Bilirubin Negative (NEG) Urine Urobilinogen Dipstick 0.2 mg/dL (0.2 mg/dL) Urine Leukocyte Esterase Negative (NEG) Urine RBC Rare /HPF (0-2) Urine WBC 1-4 /HPF (0-4) Urine Squamous Epithelial Cells Few /LPF Urine Bacteria Few /HPF (0-FEW) Urine Hyaline Casts Few /HPF Urine Mucus Mod /LPF White Blood Count 8.2 x10^3/uL (4.0-11.0) Red Blood Count 4.29 x10^6/uL (3.50-5.40) Hemoglobin 14.0 g/dL (12.0-15.5) Hematocrit 41.9 % (36.0-47.0) Mean Corpuscular Volume 98 fL (79-100) Mean Corpuscular Hemoglobin 33 pg (25-35) Mean Corpuscular Hemoglobin Concent 33 g/dL (31-37) Red Cell Distribution Width 13.5 % (11.5-14.5) Platelet Count 312 x10^3/uL (140-400) Neutrophils (%) (Auto) 85 % (31-73) Lymphocytes (%) (Auto) 9 % (24-48) Monocytes (%) (Auto) 5 % (0-9) Eosinophils (%) (Auto) 1 % (0-3) Basophils (%) (Auto) 0 % (0-3) Neutrophils # (Auto) 6.9 x10^3/uL (1.8-7.7) Lymphocytes # (Auto) 0.7 x10^3/uL (1.0-4.8) Monocytes # (Auto) 0.4 x10^3/uL (0.0-1.1) Eosinophils # (Auto) 0.1 x10^3/uL (0.0-0.7) Basophils # (Auto) 0.0 x10^3/uL (0.0-0.2) Segmented Neutrophils % 89 % (35-66) Lymphocytes % 5 % (24-48) Monocytes % 5 % (0-10) Eosinophils % 1 % (0-5) Platelet Estimate Adequate (ADEQUATE) Sodium Level 141 mmol/L (136-145) Potassium Level 3.6 mmol/L (3.5-5.1) Chloride Level 101 mmol/L (98-107) Carbon Dioxide Level 31 mmol/L (21-32) Anion Gap 9 (6-14) Blood Urea Nitrogen 11 mg/dL (7-20) Creatinine 0.8 mg/dL (0.6-1.0) Estimated GFR (Cockcroft-Gault) 70.9 BUN/Creatinine Ratio 14 (6-20) Glucose Level 136 mg/dL (70-99) Calcium Level 9.5 mg/dL (8.5-10.1) Total Bilirubin 0.9 mg/dL (0.2-1.0) Aspartate Amino Transf (AST/SGOT) 219 U/L (15-37) Alanine Aminotransferase (ALT/SGPT) 94 U/L (14-59) Alkaline Phosphatase 240 U/L (46-116) Total Protein 7.4 g/dL (6.4-8.2) Albumin 3.8 g/dL (3.4-5.0) Albumin/Globulin Ratio 1.1 (1.0-1.7) Laboratory Tests Test 09/16/19 08:40 09/16/19 13:00 Urine Collection Type Unknown Urine Color Yellow Urine Clarity Clear Urine pH 5.5 Urine Specific [place] 1.015 Urine Protein 100 mg/dL (NEG-TRACE) Urine Glucose (UA) Negative mg/dL (NEG) Urine Ketones (Stick) Negative mg/dL (NEG) Urine Blood Negative (NEG) Urine Nitrite Negative (NEG) Urine Bilirubin Negative (NEG) Urine Urobilinogen Dipstick 0.2 mg/dL (0.2 mg/dL) Urine Leukocyte Esterase Negative (NEG) Urine RBC Rare /HPF (0-2) Urine WBC 1-4 /HPF (0-4) Urine Squamous Epithelial Cells Few /LPF Urine Bacteria Few /HPF (0-FEW) Urine Hyaline Casts Few /HPF Urine Mucus Mod /LPF White Blood Count 8.2 x10^3/uL (4.0-11.0) Red Blood Count 4.29 x10^6/uL (3.50-5.40) Hemoglobin 14.0 g/dL (12.0-15.5) Hematocrit 41.9 % (36.0-47.0) Mean Corpuscular Volume 98 fL (79-100) Mean Corpuscular Hemoglobin 33 pg (25-35) Mean Corpuscular Hemoglobin Concent 33 g/dL (31-37) Red Cell Distribution Width 13.5 % (11.5-14.5) Platelet Count 312 x10^3/uL (140-400) Neutrophils (%) (Auto) 85 % (31-73) Lymphocytes (%) (Auto) 9 % (24-48) Monocytes (%) (Auto) 5 % (0-9) Eosinophils (%) (Auto) 1 % (0-3) Basophils (%) (Auto) 0 % (0-3) Neutrophils # (Auto) 6.9 x10^3/uL (1.8-7.7) Lymphocytes # (Auto) 0.7 x10^3/uL (1.0-4.8) Monocytes # (Auto) 0.4 x10^3/uL (0.0-1.1) Eosinophils # (Auto) 0.1 x10^3/uL (0.0-0.7) Basophils # (Auto) 0.0 x10^3/uL (0.0-0.2) Segmented Neutrophils % 89 % (35-66) Lymphocytes % 5 % (24-48) Monocytes % 5 % (0-10) Eosinophils % 1 % (0-5) Platelet Estimate Adequate (ADEQUATE) Sodium Level 141 mmol/L (136-145) Potassium Level 3.6 mmol/L (3.5-5.1) Chloride Level 101 mmol/L (98-107) Carbon Dioxide Level 31 mmol/L (21-32) Anion Gap 9 (6-14) Blood Urea Nitrogen 11 mg/dL (7-20) Creatinine 0.8 mg/dL (0.6-1.0) Estimated GFR (Cockcroft-Gault) 70.9 BUN/Creatinine Ratio 14 (6-20) Glucose Level 136 mg/dL (70-99) Calcium Level 9.5 mg/dL (8.5-10.1) Total Bilirubin 0.9 mg/dL (0.2-1.0) Aspartate Amino Transf (AST/SGOT) 219 U/L (15-37) Alanine Aminotransferase (ALT/SGPT) 94 U/L (14-59) Alkaline Phosphatase 240 U/L (46-116) Total Protein 7.4 g/dL (6.4-8.2) Albumin 3.8 g/dL (3.4-5.0) Albumin/Globulin Ratio 1.1 (1.0-1.7) DILSHAD DUNBAR MD Sep 16, 2019 17:10
[2019-09-16] MEDS: LIDOCAINE (700MG/PATCH) PATCH. TD SCH (17:38)
[2019-09-16] MEDS: POLYETHYLENE GLYCOL 3350 17 GM PACKET. PO SCH (17:52)
[2019-09-16] MEDS: ONDANSETRON PF 4 MG/2 ML VIAL. IVP PRN (17:52)
[2019-09-16 19:00] VITALS: BP 144/76
--- NOTE | 2019-09-16 20:06 | HP ---
ADMIT DATE: 09/16/2019 ADMISSION HISTORY AND PHYSICAL CHIEF COMPLAINT AND HISTORY OF PRESENT ILLNESS: This 69-year-old white female is well known to me from followup in the office. She has a history of small cell carcinoma, which has been treated. She has had several days of lower back pain, more to the right with some radiation down the right leg. She presented pain is worse since yesterday after fell landing on her buttocks. There is increased pain with ambulation. She denied any changes in urinary or bowel function. No weakness or loss of sensation. She states that sometimes when the pain is bad enough in her back, she gets a headache and had some vomiting related to the same. She was seen in the Emergency Room where imaging of her lumbar spine by CT showed concern for metastatic disease with lytic lesion at the superior endplates of L3 and L4, but appeared new. No pathological fractures were noted. She was admitted for pain control and further workup of the same. PAST MEDICAL HISTORY: Remarkable for that as mentioned above. In addition, she has hypertension, diabetes, chronic obstructive pulmonary disease. PAST SURGICAL HISTORY: Remarkable for cholecystectomy. MEDICATIONS: Brought with the patient, listed on the computer. ALLERGIES: She has no known drug allergies. SOCIAL HISTORY: She has been a smoker, is nondrinker, and does not use drugs, single, lives at home with a friend. FAMILY HISTORY: Noncontributory. REVIEW OF SYSTEMS: As mentioned above. PHYSICAL EXAMINATION: GENERAL: She is well-developed, well-nourished white female who appears uncomfortable. VITAL SIGNS: Stable. She is afebrile. HEAD, EYES, EARS, NOSE AND THROAT: Unremarkable. NECK: Supple, without adenopathy or thyromegaly. CHEST: Clear to auscultation and percussion. HEART: Regular rate and rhythm without S3, S4 or murmur. ABDOMEN: Soft, nontender, without hepatosplenomegaly or masses. EXTREMITIES: Without cyanosis or clubbing. There is trace edema. NEUROLOGIC: She is intact. Palpation of her lower back does reveal paralumbar tenderness on the right side. No CVA tenderness is present. IMPRESSION: 1. Back pain with likely some right lumbar radicular symptoms due to metastatic disease from small cell carcinoma. 2. Other problems listed above. PLAN: The patient has been admitted. Pain will be controlled. Radiation Oncology as well as Oncology will be consulted and the patient will be monitored, managed and treated appropriately. JULIETH NELSON MD DR: YANELIS/salud JOB#: [id number] / [id number]
[2019-09-16] MEDS: PATCH REMOVAL. MC SCH (21:00)
[2019-09-16] MEDS: amLODIPine BESYLATE 5 MG TABLET PO SCH (21:27)
[2019-09-16] MEDS: MORPHINE ER 15 MG TABLET.ER PO SCH (21:28)
[2019-09-16 22:51] VITALS: BP 137/72
--- NOTE | 2019-09-16 23:52 | CONS ---
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 She underwent biopsy in 01/2019. She received chemotherapy followed by chemotherapy and 60 Gy of chest radiation completed in May 2019. She had a near complete response and then received 25 Gy of prophylactic cranial radiation in June 2019. She now has been admitted with a 5-day history of progressive severe low back pain, lumbar CT scan suggests lytic metastatic disease L3 and L4. We were asked to see regarding palliative radiation therapy to that site. HISTORY OF PRESENT ILLNESS: The patient noted a spontaneous onset of significant low lumbar back pain over the last 5 days since Thursday09/12/2019. This occurred with no trauma or falls. Pain became progressively severe and caused headaches and nausea. When standing, she had shooting pain down her right leg. She did fall forward while putting on her shoes resulting in no injury, but this occurred after the onset of pain. Pain is center and to the right of the lumbar spine region. Currently, she has no headaches. She has no pain elsewhere. She has little appetite due to pain. Weight has been stable. She has ongoing poor energy level. Breathing is stable. She has no lower extremity numbness, weakness or tingling. CT scan of the lumbar spine obtained earlier today on 09/16/2019 did reveal lytic lucencies in the superior aspect of the L3 vertebral body and another lucent region along the right superior endplate of L4, both of which are highly suggestive for lytic metastatic disease in my review, vertebral body height was preserved. Canal was preserved with no compromise of the canal seen. No other imaging is performed as yet. PAST MEDICAL HISTORY: Remarkable for COPD. Previously, she was oxygen dependent prior to treatment, cholecystectomy, hypertension. ALLERGIES: None. MEDICATIONS: See hospital chart. FAMILY HISTORY: Unremarkable for malignancy. SOCIAL HISTORY: for a short time, over 50 years, no children. Has many nieces and nephews living here. 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 Enjoyed traveling around the country in long-term. She previously smoked 1 to 1-1/2 packs a day for 50 years, quit 2 years ago at the time of diagnosis of COPD, minimal drinking in the past. PHYSICAL EXAMINATION: GENERAL: Revealed a pleasant person, in mild pain distress, alopecic from previous prophylactic cranial radiation. VITAL SIGNS: Blood pressure 101/54, pulse 99, pulse oximetry on room air 91%. LYMPH NODES: She had no palpable cervical or supraclavicular adenopathy. LUNGS: Clear to percussion. HEART: Regular. ABDOMEN: Revealed obesity, without hepatomegaly, masses or tenderness. EXTREMITIES: Reveal no clubbing, cyanosis or edema. NEUROLOGIC: She was alert, appropriate. Lower extremity strength, sensation and knee jerk reflexes were symmetric and intact. Gait was not tested. LABORATORY STUDIES: CBC from today, hemoglobin 14.0, white count 8200, platelet count 312,000. Chemistry panel revealed normal creatinine 0.8, calcium 9.5. Liver function tests were elevated, AST 219, ALT 94, alkaline phosphatase 240, normal bilirubin 0.9. ASSESSMENT AND PLAN: In summary, my impression is that of initial limited small cell carcinoma of the lung. She had a good response to primary chemo and chest radiation. She then received prophylactic cranial radiation with all treatment completed in 06/2019. She now has evidence for lytic metastatic disease causing lumbar back pain at L3-L4, vertebral bodies are intact. No evidence for compression fracture or cord compromise seen and she is neurologically intact in her lower extremities. At this time, I recommend ongoing control of her pain. We will initiate radiation treatment as soon as feasible, which at this time is 09/19/2019. I anticipate a 5-day course of treatment directed toward the site of metastatic disease at L3 and L4. She does have elevated liver function tests. It is rational to further assess her with CT scan of the chest and abdomen. I would defer that until her pain is better controlled. I described the treatable but incurable nature of her recurrence. Thank you for allowing us to participate in her evaluation. Dr. Girma Thomas will see her, who is covering for my absence on Thursday09/19/2019. Thank you again. Sincerely yours, COLETTE LONG MD DR: MEHNAZ/salud JOB#: [id number] / [id number] JENNI Dorsey MD, SABATO MD
[2019-09-17 03:00] VITALS: BP 134/68
[2019-09-17] MEDS: fentaNYL PF VIAL 100 MCG/2 ML VIAL IVP PRN ×3 (04:39→11:07)
[2019-09-17] MEDS: ONDANSETRON PF 4 MG/2 ML VIAL. IVP PRN ×2 (04:40→13:19)
[2019-09-17 07:00] VITALS: BP 113/53
[2019-09-17] MEDS: LIDOCAINE (700MG/PATCH) PATCH. TD SCH (07:57)
[2019-09-17] MEDS: MORPHINE ER 15 MG TABLET.ER PO SCH ×3 (07:58→21:02)
[2019-09-17] MEDS: amLODIPine BESYLATE 5 MG TABLET PO SCH ×2 (07:58→12:15)
[2019-09-17] MEDS: DOCUSATE SODIUM 100 MG CAPSULE. PO PRN (07:58)
[2019-09-17] MEDS: SENNOSIDES 8.6 MG TABLET PO PRN ×2 (07:58→21:36)
[2019-09-17] MEDS: POLYETHYLENE GLYCOL 3350 17 GM PACKET. PO SCH (07:59)
[2019-09-17] MEDS ORDERED: GLIMEPIRIDE 2 MG TABLET. PO SCH (09:00)
[2019-09-17] MEDS: MORPHINE IR 15 MG TABLET PO PRN ×3 (09:59→17:50)
[2019-09-17 11:00] VITALS: BP 106/58
--- NOTE | 2019-09-17 12:55 | PDOC ---
Provider Note Provider Note vss, nausea likely from opioids but needs re met pain- will inc ms contin and try compazine- has high TAs, suspect tumor, ct ordered re same- were normal in 03/09- reduce amlo dose re lower bp SONA FERNANDO MD Sep 17, 2019 12:55
[2019-09-17] MEDS: GLIMEPIRIDE 2 MG TABLET. PO SCH (13:00)
--- NOTE | 2019-09-17 13:27 | NUR ---
Non-administered Amlodipine and Glimperide on EMAR 0800 dose was already given.
[2019-09-17] MEDS ORDERED: IOHEXOL 300 MG/ML 100ML VIAL. IV ONE (13:30)
[2019-09-17 15:00] VITALS: BP 110/48
[2019-09-17] MEDS: PROCHLORPERAZINE 10 MG/2 ML VIAL. IV PRN (16:34)
[2019-09-17] MEDS: IPRATRPIUM/ALBUTEROL 0.5/2.5MG 3 ML NEBU. NEB SCH (18:20)
[2019-09-17 19:15] VITALS: BP 113/55
[2019-09-17] MEDS: PATCH REMOVAL. MC SCH (21:00)
[2019-09-17 22:50] VITALS: BP 97/55
[2019-09-18] MEDS: fentaNYL PF VIAL 100 MCG/2 ML VIAL IVP PRN ×4 (01:36→17:30)
[2019-09-18 03:32] VITALS: BP 108/54
[2019-09-18 06:10] LABS: ALBUMIN 3.6 g/dL (3.4-5.0); DIRECT BILIRUBIN 0.2 mg/dL (0.0-0.2); TOTAL BILIRUBIN 0.4 mg/dL (0.2-1.0); TOTAL PROTEIN 7.4 g/dL (6.4-8.2)
[2019-09-18 07:00] VITALS: BP 114/41
[2019-09-18] MEDS: IPRATRPIUM/ALBUTEROL 0.5/2.5MG 3 ML NEBU. NEB SCH ×2 (07:07→20:19)
[2019-09-18] MEDS: ONDANSETRON PF 4 MG/2 ML VIAL. IVP PRN (07:11)
[2019-09-18] MEDS: MORPHINE IR 15 MG TABLET PO PRN (07:12)
[2019-09-18] MEDS: PROCHLORPERAZINE 10 MG/2 ML VIAL. IV PRN (08:06)
[2019-09-18] MEDS ORDERED: IOHEXOL 300 MG/ML 100ML VIAL. IV ONE (08:30)
[2019-09-18] MEDS: MORPHINE ER 15 MG TABLET.ER PO SCH (08:58)
[2019-09-18] MEDS: SENNOSIDES 8.6 MG TABLET PO PRN ×2 (08:58→21:02)
[2019-09-18] MEDS: POLYETHYLENE GLYCOL 3350 17 GM PACKET. PO SCH (08:59)
[2019-09-18] MEDS: amLODIPine BESYLATE 5 MG TABLET PO SCH (08:59)
[2019-09-18] MEDS: GLIMEPIRIDE 2 MG TABLET. PO SCH (08:59)
[2019-09-18] MEDS: LIDOCAINE (700MG/PATCH) PATCH. TD SCH (09:06)
--- NOTE | 2019-09-18 09:10 | RAD ---
Examination: CT of the abdomen without and with IV contrast, multiphasic liver HISTORY: History of transaminitis COMPARISON: CT abdomen from 06/29/2019 TECHNIQUE: CT of the abdomen was performed without and with IV contrast using multiphase CT liver protocol. Coronal and sagittal reformats are performed. Exposure: One or more of the following individualized dose reduction techniques were utilized for this examination: 1. Automated exposure control 2. Adjustment of the mA and/or kV according to patient size 3. Use of iterative reconstruction technique FINDINGS: Linear airspace opacities identified in the right middle lobe and the bibasilar lungs likely atelectasis. No evidence of free air identified in the visualized abdomen. Diffuse decreased attenuation noted in the liver likely hepatic steatosis. Hepatomegaly. No obvious enhancing lesion evident in the liver. Cholecystectomy changes identified. The spleen, pancreas grossly appears unremarkable. There is a 2.5 cm nodule measuring 27 Hounsfield units identified in the left adrenal gland. There is a 1.3 cm nodule measuring 10 Hounsfield units identified in the right adrenal gland. Multiple cysts identified in the bilateral kidneys with the largest measuring 2.9 cm. Feces and gas identified in the colon. Moderate degenerative changes thoracal lumbar spine. IMPRESSION: 1. Hepatomegaly with hepatic steatosis. Obvious enhancing lesion is not evident in the liver. 2.Unchanged bilateral adrenal nodules. Electronically signed by: Derrick Ruiz MD (09/18/2019 9:07 AM) [facility]
[2019-09-18 11:00] VITALS: BP 109/57
--- NOTE | 2019-09-18 11:20 | PDOC ---
Provider Note Provider Note vss, no temp- ms contin still nauseating so will try duragesic next, prn norco and toradol- ct showed no clear liver lesuions, LFT same, may be NAFLD- starting radtx tomorrow SONA FERNANDO MD Sep 18, 2019 11:20
[2019-09-18] MEDS: fentaNYL 50MCG/HR PATCH 1 PATCH PATCH.TD72 TD SCH (12:18)
[2019-09-18 15:00] VITALS: BP 110/54
[2019-09-18] MEDS: HYDROcodone/APAP 7.5/325MG 1 TAB TABLET PO PRN (17:30)
[2019-09-18 19:15] VITALS: BP 140/71
[2019-09-18] MEDS: PATCH REMOVAL. MC SCH (21:00)
[2019-09-18 23:04] VITALS: BP 107/54
[2019-09-19] MEDS: HYDROcodone/APAP 7.5/325MG 1 TAB TABLET PO PRN ×4 (02:08→18:06)
[2019-09-19] MEDS ORDERED: ONDANSETRON ODT 4 MG TAB.RAPDIS. PO PRN ×2 (02:30→08:30)
[2019-09-19 03:01] VITALS: BP 101/45
[2019-09-19 07:00] VITALS: BP 136/51
[2019-09-19] MEDS: IPRATRPIUM/ALBUTEROL 0.5/2.5MG 3 ML NEBU. NEB SCH ×2 (07:19→20:58)
[2019-09-19] MEDS: amLODIPine BESYLATE 5 MG TABLET PO SCH (08:13)
[2019-09-19] MEDS: POLYETHYLENE GLYCOL 3350 17 GM PACKET. PO SCH (08:15)
[2019-09-19] MEDS: GLIMEPIRIDE 2 MG TABLET. PO SCH (08:15)
[2019-09-19] MEDS: LIDOCAINE (700MG/PATCH) PATCH. TD SCH (08:17)
[2019-09-19] MEDS: DOCUSATE SODIUM 100 MG CAPSULE. PO PRN (08:21)
[2019-09-19] MEDS: SENNOSIDES 8.6 MG TABLET PO PRN (08:21)
--- NOTE | 2019-09-19 09:42 | PDOC ---
SUBJECTIVE Subjective S: constipated, had RT sim today O: Gen: tremor, assistance w/ transfers, NAD Psych: pleasant mood, tired affect Labs: last CBC and Cr nl Rads: CT abd showed hepatomegaly w/ hepatic steatosis Assessment and Plan: She is a 69-year-old female with now recurrent to L sp small cell lung cancer unfortunately after completing carboplatin and etoposide 4 in Apr 2019 and pulm radiotherapy in May 2019, and PCI completed in Jun 2019. initially atezolizumab had been given for presumed adrenal metastasis though dc'd after adrenal biopsy negative, though now she has recurrence in less than 6 months from treatment completion. Back pain: fentanyl patch, lidocaine patch, pending RT Recurrent small cell: Appreciate Dr. Mckinnon, pending RT pall to L-spine, will plan for CT chest prior to beginning second line chemotherapy, she'll follow-up with Dr. Bowman as an outpatient after radiotherapy complete to consider second line chemotherapy History of constipation: colace, miralax and senna ordered, added suppository prn Disposition: After adequate pain control and radiotherapy has been initiated Thank you kindly and please do not hesitate to call with further questions. OBJECTIVE Vital Signs Vital Signs Date Time Temp Pulse Resp B/P (MAP) Pulse Ox O2 Delivery O2 Flow Rate FiO2 09/19/19 08:14 94 Nasal Cannula 2.0 09/19/19 08:13 88 136/51 09/19/19 07:21 94 Nasal Cannula 2.0 09/19/19 07:00 98.5 88 18 136/51 (79) 94 Nasal Cannula 2.0 98.5 09/19/19 03:08 92 Nasal Cannula 2.0 09/19/19 03:01 98.6 93 18 101/45 (63) 92 Nasal Cannula 2.0 98.6 09/19/19 02:08 Nasal Cannula 09/18/19 23:04 98.5 95 18 107/54 (71) 92 Nasal Cannula 2.0 98.5 09/18/19 20:21 94 Nasal Cannula 2.0 09/18/19 19:30 Nasal Cannula 2.0 09/18/19 19:15 97.9 85 18 140/71 (94) 93 Nasal Cannula 2.0 97.9 09/18/19 17:30 22 Nasal Cannula 2.0 09/18/19 17:30 20 2 Room Air 09/18/19 15:51 Nasal Cannula 2.0 09/18/19 15:00 98.4 88 18 110/54 (72) 95 Nasal Cannula 2.0 98.4 09/18/19 12:58 18 Nasal Cannula 2.0 09/18/19 12:18 20 Nasal Cannula 2.0 09/18/19 11:00 98.5 93 18 109/57 (74) 89 Nasal Cannula 2.0 98.5 09/18/19 10:32 20 Nasal Cannula 2.0 09/18/19 10:02 Nasal Cannula 2.0 I & O Intake and Output 09/19/19 07:00 Intake Total 600 ml Balance 600 ml Intake Oral 600 ml # Voids 4 DILSHAD ROBIN MD Sep 19, 2019 09:42
[2019-09-19] MEDS ORDERED: BISACODYL 10 MG SUPP.RECT. PR PRN (09:45)
[2019-09-19 11:00] VITALS: BP 105/63
--- NOTE | 2019-09-19 14:30 | NUR ---
radiation set-up simulation and treatment given today to lumbar 2 thru 5.
[2019-09-19 15:00] VITALS: BP 143/69
[2019-09-19] MEDS: fentaNYL PF VIAL 100 MCG/2 ML VIAL IVP PRN ×2 (15:56→20:23)
[2019-09-19 19:00] VITALS: BP 121/63
--- NOTE | 2019-09-19 19:08 | NUR ---
Still has pain shooting down right leg. States pain is worse than before. Hydrocodone and Fentanyl IV given. Notified software configuration manager. Waiting for return call.
[2019-09-19] MEDS: KETOROLAC 30 MG/ML VIAL. IVP PRN (19:39)
--- NOTE | 2019-09-19 19:52 | PDOC ---
GENERAL General: vss and afebrile. awake and alert and friend present. lots of back pain. expect ing xrt to start today for control of back pain. ct abdomen negative for obvious liver metastatic disease with elevated lft's. only noted hepatic steatosis. chest clear, heart regular abdomen benign. VITAL SIGNS/I&O Vital Signs/I&O: Vital Signs Date Time Temp Pulse Resp B/P (MAP) Pulse Ox O2 Delivery O2 Flow Rate FiO2 09/19/19 19:06 18 94 Nasal Cannula 2.0 09/19/19 15:00 98.3 88 143/69 (93) 98.3 I & O 09/18/19 09/18/19 09/19/19 15:00 23:00 07:00 Intake Total 120 ml 480 ml Balance 120 ml 480 ml ALLERGIES Allergies: Allergies Coded Allergies Type Severity Reaction Last Updated Verified No Known Drug Allergies 02/17/19 No MEDS Medications: Current Medications Medications (Trade) Dose Ordered Sig/Elisabet Route PRN Reason Start Time Stop Time Status Last Admin Dose Admin Ondansetron HCl (Zofran Odt) 4 mg PRN Q6HRS PRN PO NAUSEA/VOMITING 09/19/19 02:30 09/19/19 02:31 JULIETH NELSON MD Sep 19, 2019 19:52
[2019-09-19] MEDS: PATCH REMOVAL. MC SCH (20:28)
[2019-09-19 23:00] VITALS: BP 110/56
[2019-09-20] MEDS: fentaNYL PF VIAL 100 MCG/2 ML VIAL IVP PRN ×4 (02:29→15:03)
[2019-09-20 03:00] VITALS: BP 118/55
[2019-09-20] MEDS: HYDROcodone/APAP 7.5/325MG 1 TAB TABLET PO PRN ×3 (05:31→16:32)
[2019-09-20 07:00] VITALS: BP 123/63
[2019-09-20] MEDS: PROCHLORPERAZINE 10 MG/2 ML VIAL. IV PRN (08:53)
[2019-09-20] MEDS: amLODIPine BESYLATE 5 MG TABLET PO SCH (08:54)
[2019-09-20] MEDS: LIDOCAINE (700MG/PATCH) PATCH. TD SCH (08:55)
[2019-09-20] MEDS: GLIMEPIRIDE 2 MG TABLET. PO SCH (08:56)
[2019-09-20] MEDS: IPRATRPIUM/ALBUTEROL 0.5/2.5MG 3 ML NEBU. NEB SCH ×2 (09:00→20:21)
[2019-09-20] MEDS ORDERED: MAGNESIUM CITRATE 296 ML SOLUTION. PO PRN (10:15)
--- NOTE | 2019-09-20 10:15 | PDOC ---
SUBJECTIVE Subjective S: constipated still, began RT for 5 days planned i believe on Thursday, better Thu then worse this am, w/ radiculopathy O: Gen: elderly, obese, NAD Psych: pleasant mood, tired affect Labs: last CBC and Cr nl and Ca nl Rads: CT abd showed hepatomegaly w/ hepatic steatosis Assessment and Plan: She is a 69-year-old female with now recurrent to L sp small cell lung cancer unfortunately after completing carboplatin and etoposide 4 in Apr 2019 and pulm radiotherapy in May 2019, and PCI completed in Jun 2019. initially atezolizumab had been given for presumed adrenal metastasis though dc'd after adrenal biopsy negative, though now she has recurrence in less than 6 months from treatment completion. Back pain: fentanyl patch, lidocaine patch, prn's, getting RT Recurrent small cell: Appreciate Dr. Mckinnon, getting RT pall to L-spine, will plan for CT chest prior to beginning second line chemotherapy, she'll follow-up with Dr. Bowman as an outpatient after radiotherapy complete to consider second line chemotherapy History of constipation: colace, miralax and senna w/ suppository scheduled, may refuse if not needed, add mag citrate (or enema or golytely) prn Disposition: After adequate pain control and radiotherapy complete Thank you kindly and please do not hesitate to call with further questions. OBJECTIVE Vital Signs Vital Signs Date Time Temp Pulse Resp B/P (MAP) Pulse Ox O2 Delivery O2 Flow Rate FiO2 09/20/19 08:54 84 123/63 09/20/19 08:52 18 09/20/19 07:00 98.5 84 18 123/63 (83) 92 Nasal Cannula 2.0 98.5 09/20/19 06:50 18 92 Nasal Cannula 2.0 09/20/19 06:31 18 92 Nasal Cannula 2.0 09/20/19 06:20 18 92 Nasal Cannula 2.0 09/20/19 05:31 18 92 Nasal Cannula 2.0 09/20/19 03:00 98.5 77 18 118/55 (76) 92 Nasal Cannula 2.0 98.5 09/20/19 02:59 18 95 Nasal Cannula 2.0 09/20/19 02:29 18 95 Nasal Cannula 2.0 09/19/19 23:00 98.0 94 16 110/56 (74) 95 Nasal Cannula 2.0 98.0 09/19/19 21:00 95 Nasal Cannula 1.0 09/19/19 20:53 18 94 Nasal Cannula 2.0 09/19/19 20:23 18 94 Nasal Cannula 2.0 09/19/19 20:00 Nasal Cannula 2.0 09/19/19 19:06 18 94 Nasal Cannula 2.0 09/19/19 19:00 97.9 85 14 121/63 (82) 94 Nasal Cannula 2.0 97.9 09/19/19 18:35 Nasal Cannula 2.0 09/19/19 18:07 Nasal Cannula 2.0 09/19/19 18:06 Nasal Cannula 2.0 09/19/19 16:25 Nasal Cannula 2.0 09/19/19 15:56 Room Air 09/19/19 15:20 Nasal Cannula 2.0 09/19/19 15:00 98.3 88 18 143/69 (93) 94 Nasal Cannula 2.0 98.3 09/19/19 14:20 Nasal Cannula 2.0 09/19/19 11:00 98.5 87 18 105/63 (77) 95 Nasal Cannula 2.0 98.5 09/19/19 10:19 94 Nasal Cannula 2.0 I & O Intake and Output 09/20/19 07:00 Intake Total 650 ml Balance 650 ml Intake Oral 650 ml # Voids 2 DILSHAD ROBIN MD Sep 20, 2019 10:15
[2019-09-20] MEDS: SENNOSIDES 8.6 MG TABLET PO SCH ×2 (10:30→20:52)
[2019-09-20] MEDS: POLYETHYLENE GLYCOL 3350 17 GM PACKET. PO SCH (10:31)
[2019-09-20] MEDS: DOCUSATE SODIUM 100 MG CAPSULE. PO SCH ×2 (10:31→20:52)
[2019-09-20] MEDS: KETOROLAC 30 MG/ML VIAL. IVP PRN ×2 (10:31→16:33)
[2019-09-20 11:00] VITALS: BP 105/59
[2019-09-20] MEDS: BISACODYL 10 MG SUPP.RECT. PR SCH (13:53)
--- NOTE | 2019-09-20 14:25 | NUR ---
radiation treatment given today#2 out of 5--no treatment on 09-21-19
[2019-09-20 15:00] VITALS: BP 138/66
[2019-09-20] MEDS ORDERED: SODIUM PHOSPHATES 19/7GM 133 ML ENEMA. PR ONE (17:15)
[2019-09-20] MEDS ORDERED: METOCLOPRAMIDE HCL 10 MG/2 ML VIAL. IVP PRN (17:15)
--- NOTE | 2019-09-20 17:15 | PDOC ---
GENERAL General: vss and afebrile. O2 at 2L/NC. constipated and will add enema prn. pain still s evere. iv problems and wonders about getting a port for same and anticipated chemo. if oncology feels appropriate will order for same. ongoing nausea and will add try of scheduled iv reglan. VITAL SIGNS/I&O Vital Signs/I&O: Vital Signs Date Time Temp Pulse Resp B/P (MAP) Pulse Ox O2 Delivery O2 Flow Rate FiO2 09/20/19 16:32 18 09/20/19 15:00 98.3 89 138/66 (90) 93 Nasal Cannula 2.0 98.3 I & O 09/19/19 09/19/19 09/20/19 14:59 22:59 06:59 Intake Total 290 ml 120 ml 240 ml Balance 290 ml 120 ml 240 ml ALLERGIES Allergies: Allergies Coded Allergies Type Severity Reaction Last Updated Verified No Known Drug Allergies 02/17/19 No MEDS Medications: Current Medications Medications (Trade) Dose Ordered Sig/Elisabet Route PRN Reason Start Time Stop Time Status Last Admin Dose Admin Bisacodyl (Dulcolax Supp) 10 mg DAILY RI 09/20/19 10:15 09/20/19 13:53 Docusate Sodium (Colace) 200 mg BID PO 09/20/19 10:15 09/20/19 10:31 Sennosides (Senna) 8.6 mg BID PO 09/20/19 10:15 09/20/19 10:30 JULIETH NELSON MD Sep 20, 2019 17:15
[2019-09-20 19:53] VITALS: BP 116/71
[2019-09-20] MEDS: PATCH REMOVAL. MC SCH (20:54)
[2019-09-20 23:06] VITALS: BP 107/60
[2019-09-21] MEDS: HYDROcodone/APAP 7.5/325MG 1 TAB TABLET PO PRN ×4 (01:37→21:43)
[2019-09-21 03:47] VITALS: BP 115/67
[2019-09-21] MEDS: fentaNYL PF VIAL 100 MCG/2 ML VIAL IVP PRN ×7 (04:13→23:05)
[2019-09-21 07:00] VITALS: BP 131/76
[2019-09-21] MEDS: POLYETHYLENE GLYCOL 3350 17 GM PACKET. PO SCH (08:01)
[2019-09-21] MEDS: DOCUSATE SODIUM 100 MG CAPSULE. PO SCH ×4 (08:01→22:29)
[2019-09-21] MEDS: BISACODYL 10 MG SUPP.RECT. PR SCH (08:01)
[2019-09-21] MEDS: SENNOSIDES 8.6 MG TABLET PO SCH ×4 (08:01→22:29)
[2019-09-21] MEDS: GLIMEPIRIDE 2 MG TABLET. PO SCH (08:02)
[2019-09-21] MEDS: amLODIPine BESYLATE 5 MG TABLET PO SCH (08:02)
[2019-09-21] MEDS: fentaNYL 50MCG/HR PATCH 1 PATCH PATCH.TD72 TD SCH (08:03)
[2019-09-21] MEDS: LIDOCAINE (700MG/PATCH) PATCH. TD SCH (08:03)
[2019-09-21] MEDS: KETOROLAC 30 MG/ML VIAL. IVP PRN ×3 (08:20→21:43)
[2019-09-21] MEDS: IPRATRPIUM/ALBUTEROL 0.5/2.5MG 3 ML NEBU. NEB SCH ×2 (08:55→19:48)
--- NOTE | 2019-09-21 09:28 | PDOC ---
GENERAL General: vss and afebrile. friend in attendance. still extremely miserable from back and right leg pain. chest clear, heart regular, abdomen benign. ongoing iv issues and will place picc line. will add steroids to see if would help radicular symptoms. no radiation today because of holiday. has received 2 treatments of same to back as of today. VITAL SIGNS/I&O Vital Signs/I&O: Vital Signs Date Time Temp Pulse Resp B/P (MAP) Pulse Ox O2 Delivery O2 Flow Rate FiO2 09/21/19 08:56 90 Nasal Cannula 2.0 09/21/19 08:02 84 131/76 09/21/19 07:00 97.9 5 97.9 I & O 09/20/19 09/20/19 09/21/19 15:00 23:00 07:00 Intake Total 120 ml 210 ml Balance 120 ml 210 ml ALLERGIES Allergies: Allergies Coded Allergies Type Severity Reaction Last Updated Verified No Known Drug Allergies 02/17/19 No MEDS Medications: Current Medications Medications (Trade) Dose Ordered Sig/Elisabet Route PRN Reason Start Time Stop Time Status Last Admin Dose Admin Bisacodyl (Dulcolax Supp) 10 mg DAILY IN 09/20/19 10:15 09/21/19 08:01 Docusate Sodium (Colace) 200 mg BID PO 09/20/19 10:15 09/21/19 08:01 Sennosides (Senna) 8.6 mg BID PO 09/20/19 10:15 09/21/19 08:01 JULIETH NELSON MD Sep 21, 2019 09:28
[2019-09-21 11:00] VITALS: BP 124/54
[2019-09-21] MEDS: methylPREDNISolone SOD SUCC PF 40 MG/ML VIAL. IV SCH ×3 (12:12→22:30)
[2019-09-21 15:00] VITALS: BP 143/88
[2019-09-21] MEDS ORDERED: SODIUM PHOSPHATES 19/7GM 133 ML ENEMA. PR ONE (18:00)
[2019-09-21 19:00] VITALS: BP 143/69
[2019-09-21] MEDS: PATCH REMOVAL. MC SCH (20:51)
[2019-09-21 23:00] VITALS: BP 122/65
[2019-09-22] MEDS: fentaNYL PF VIAL 100 MCG/2 ML VIAL IVP PRN ×4 (01:08→08:29)
[2019-09-22 03:00] VITALS: BP 141/78
[2019-09-22] MEDS: HYDROcodone/APAP 7.5/325MG 1 TAB TABLET PO PRN ×3 (03:45→18:33)
--- NOTE | 2019-09-22 04:45 | NUR ---
Assumed pt care at this time. Pt in bed sleeping. Call light within reach. Will return to monitor.
[2019-09-22] MEDS: PROCHLORPERAZINE 10 MG/2 ML VIAL. IV PRN ×2 (05:50→12:57)
[2019-09-22] MEDS: methylPREDNISolone SOD SUCC PF 40 MG/ML VIAL. IV SCH ×3 (05:50→22:00)
[2019-09-22] MEDS: IPRATRPIUM/ALBUTEROL 0.5/2.5MG 3 ML NEBU. NEB SCH ×2 (06:51→19:38)
[2019-09-22 07:00] VITALS: BP 101/71
[2019-09-22] MEDS: amLODIPine BESYLATE 5 MG TABLET PO SCH (08:26)
[2019-09-22] MEDS: SENNOSIDES 8.6 MG TABLET PO SCH ×2 (08:26→20:52)
[2019-09-22] MEDS: LIDOCAINE (700MG/PATCH) PATCH. TD SCH (08:26)
[2019-09-22] MEDS: DOCUSATE SODIUM 100 MG CAPSULE. PO SCH ×2 (08:27→20:52)
[2019-09-22] MEDS: GLIMEPIRIDE 2 MG TABLET. PO SCH (08:27)
[2019-09-22] MEDS: KETOROLAC 30 MG/ML VIAL. IVP PRN (08:28)
[2019-09-22] MEDS: ONDANSETRON PF 4 MG/2 ML VIAL. IVP PRN (08:29)
--- NOTE | 2019-09-22 08:31 | NUR ---
radiation therapy given today.
[2019-09-22] MEDS ORDERED: PEG 3350/NA SULF,BICARB,CL/KCL 4,000 ML SOLUTION. PO PRN (10:00)
--- NOTE | 2019-09-22 10:04 | PDOC ---
SUBJECTIVE Subjective S: constipated still, getting RT thru Thursday, pain better, w/ radiculopathy still O: Gen: elderly, obese, NAD, changing position in bed Psych: pleasant mood, tired affect Labs: cbc nl at last check Rads: CT abd showed hepatomegaly w/ hepatic steatosis Assessment and Plan: She is a 69-year-old female with now recurrent to L sp small cell lung cancer unfortunately after completing carboplatin and etoposide 4 in Apr 2019 and pulm radiotherapy in May 2019, and PCI completed in Jun 2019. initially atezolizumab had been given for presumed adrenal metastasis though dc'd after adrenal biopsy negative, though now she has recurrence in less than 6 months from treatment completion. Back pain: fentanyl patch per primary, added steroids, lidocaine patch, prn's, getting RT, will add gabapentin 300 hs, titrate prn Recurrent small cell: Appreciate Dr. Mckinnon, getting RT pall to L-spine, will plan for CT chest prior to beginning second line chemotherapy, she'll follow-up with Dr. Bowman as an outpatient after radiotherapy complete to consider second line chemotherapy History of constipation: colace, miralax and senna w/ suppository scheduled, may refuse if not needed, added mag citrate and fleet, still no luck, getting Xray she tells me, will order colon prep prn Disposition: After adequate pain control and ideally a BM, tomorrow possibly, would like her to have pall care at home set up soon Thank you kindly and please do not hesitate to call with further questions. OBJECTIVE Vital Signs Vital Signs Date Time Temp Pulse Resp B/P (MAP) Pulse Ox O2 Delivery O2 Flow Rate FiO2 09/22/19 08:29 18 09/22/19 08:26 89 141/78 09/22/19 07:00 98.3 91 18 101/71 (81) 90 Nasal Cannula 2.0 98.3 09/22/19 06:52 93 Nasal Cannula 2.0 09/22/19 06:23 Nasal Cannula 2.0 09/22/19 05:51 Nasal Cannula 2.0 09/22/19 05:28 Nasal Cannula 2.0 09/22/19 03:45 Room Air 09/22/19 03:13 Nasal Cannula 2.0 09/22/19 03:00 98.2 89 18 141/78 (99) 96 Nasal Cannula 2.0 98.2 09/22/19 01:38 Nasal Cannula 2.0 09/22/19 01:08 Nasal Cannula 2.0 09/21/19 23:35 Nasal Cannula 2.0 09/21/19 23:05 Nasal Cannula 2.0 09/21/19 23:00 97.7 92 18 122/65 (84) 98 Nasal Cannula 2.0 97.7 09/21/19 22:57 Nasal Cannula 2.0 09/21/19 21:43 Room Air 09/21/19 21:21 Nasal Cannula 2.0 09/21/19 20:51 Nasal Cannula 2.0 09/21/19 19:48 92 Nasal Cannula 2.0 09/21/19 19:30 Nasal Cannula 2.0 09/21/19 19:13 Nasal Cannula 2.0 09/21/19 19:00 98.3 90 18 143/69 (93) 96 Nasal Cannula 2.0 98.3 09/21/19 18:43 Nasal Cannula 2.0 09/21/19 17:10 Room Air 09/21/19 16:38 Nasal Cannula 2.0 09/21/19 16:36 Nasal Cannula 2.0 09/21/19 15:36 Nasal Cannula 2.0 09/21/19 15:00 98.2 85 18 143/88 (106) 94 Nasal Cannula 2.0 98.2 09/21/19 13:35 Room Air 09/21/19 13:05 Nasal Cannula 2.0 09/21/19 12:05 Nasal Cannula 2.0 09/21/19 11:00 98.8 85 16 124/54 (77) 96 Nasal Cannula 2.0 98.8 09/21/19 10:06 Room Air I & O l Intake and Output 09/22/19 07:00 Intake Total 1170 ml Balance 1170 ml Intake Oral 1170 ml # Voids 3 DILSHAD ROBIN MD Sep 22, 2019 10:04
--- NOTE | 2019-09-22 10:23 | PDOC2 ---
CONSULT Date of Consult Date of Consult DATE: 09/22/19 TIME: 10:16 Reason for consultation: ITP Consult: Hematology oncology, Dr. Dilshad Dunbar History of present illness: She is a 69-year-old female with a history of thrombocytopenia, chronic, since 2012, worsening over time, improved with Decadron, but only short acting, as well improved with prednisone but due to poor tolerability of prednisone she was started on rituximab, completed week 4 on 05 September 2019 and now platelet count is 122,000 on the her ITP as associated with easy bruising but she declines any current bleeding, does have iron deficient anemia and has been treated with iron and is pending GI workup once her platelet count is persistently stable. She is nearing the end of her steroid taper but came in with weakness and fatigue, noted to have positive troponin and elevated BNP, history of aortic and mitral valve replacement, on Coumadin, cardiology is involved. Recent folic acid levels were fine. Past medical history: CHF TIA [place] Hypertension Aortic stenosis Rheumatic fever as a child Bronchitis Hypothyroid Osteoarthritis She tells me she has a ceramic aortic and mitral valve Osteopenia Cardiomyopathy ITP Lupus in 1997 reported Iron deficient anemia Recent L3 vertebral compression fracture Past surgical history: Bilateral tubal ligation Heart valve replacement 2 Pacemaker Cholecystectomy Thyroidectomy Cataract surgery Cardiac catheterization Recent bone marrow biopsy Allergies: Sulfa and penicillin Medications: See attached list Social history: , no tobacco or alcohol Family history: Cancer, rheumatoid arthritis, hypertension Review of systems: Pain in her sacrum, easy bruising, night sweats 1 last night, a little nausea yesterday, with diarrhea, malaise after bone marrow biopsy, recent fall otherwise current 10 point review of systems negative Physical exam: Vitals reviewed Gen.: Well-nourished and well-developed in no acute distress HEENT: mucous membranes moist, head normocephalic atraumatic Neck: Supple, no lymphadenopathy Lymph nodes: No palpable lymphadenopathy neck or axilla Lungs: Breathing comfortably w/o e/o respiratory distress Abdomen: Soft, nontender, nondistended Extremities: No cyanosis or signif edema Skin: No obvious rashes or skin breakdown, bruise at UE Neuro: Alert and oriented 3 Psych: Normal mood and affect Lab reviewed: White count 6.7, hemoglobin 12.4, platelets 119, MCV of 93, INR of 2.2, creatinine of 0.9, folic acid greater than 22 in May Rads reviewed: Chest x-ray similar to prior, no infiltrate Head CT with nonspecific white matter changes Case discussed with: pt, records reviewed in [facility] and [facility], including labs and radiology, please see note for summary details Assessment and Plan: She is a 69-year-old female with a history of ITP as well as a significant cardiac history admitted with malaise and weakness and fatigue Positive troponin and elevated BNP and cardiac history: Per cardiology Anticoag with Coumadin: INR therapeutic ITP: Good response to rituximab, platelets greater than 100,000 on prednisone taper, no need for further treatment at this time Malaise and other symptoms: Would caution adrenal insufficiency as she is coming off her prednisone History of iron deficient anemia: Has received iron, is pending GI eval once platelets have documented stability Disposition: After continued clinical improvement, per others, she can follow-up with Dr. Bowman after discharge as needed Thank you kindly for this consultation. Current Problem List Problem List Problems Medical Problems: (1) Lumbar radiculopathy, acute Status: Acute (2) Metastatic disease Status: Acute Current Medications Current Medications Current Medications Morphine Sulfate (Morphine Sulfate) 10 mg 1X ONCE IM Last administered on 09/16/19at 09:22; Start 09/16/19 at 09:00; Stop 09/16/19 at 09:01; Status DC Ondansetron HCl (Zofran Odt) 4 mg 1X ONCE PO Last administered on 09/16/19at 09:25; Start 09/16/19 at 09:00; Stop 09/16/19 at 09:01; Status DC Orphenadrine Citrate (Norflex) 60 mg 1X ONCE IM Last administered on 09/16/19at 09:25; Start 09/16/19 at 09:00; Stop 09/16/19 at 09:01; Status DC Morphine Sulfate (Ms Contin) 15 mg BID PO Last administered on 09/17/19at 07:58; Start 09/16/19 at 21:00; Stop 09/17/19 at 12:54; Status DC Morphine Sulfate (Morphine Ir) 15 mg PRN Q4HRS PRN PO PAIN Last administered on 09/18/19at 07:12; Start 09/16/19 at 13:15; Stop 09/18/19 at 11:22; Status DC Morphine Sulfate (Ms Contin) 15 mg 1X ONCE PO Last administered on 09/16/19 13:42; Start 09/16/19 at 13:15; Stop 09/16/19 at 13:16; Status DC Fentanyl Citrate (Fentanyl 2ml Vial) 50 mcg PRN Q2HR PRN IVP MODERATE PAIN Last administered on 09/19/19 18:07; Start 09/16/19 at 16:45 Fentanyl Citrate (Fentanyl 2ml Vial) 75 mcg PRN Q2HR PRN IVP SEVERE PAIN Last administered on 09/22/19 08:29; Start 09/16/19 at 16:45 Docusate Sodium (Colace) 100 mg PRN BID PRN PO HARD STOOLS Last administered on 09/19/19 08:21; Start 09/16/19 at 17:00; Stop 09/20/19 at 10:13; Status DC Polyethylene Glycol (miraLAX PACKET) 17 gm DAILY PO Last administered on 09/21/19 08:01; Start 09/16/19 at 17:30 Sennosides (Senna) 8.6 mg PRN BID PRN PO CONSTIPATION Last administered on 09/19/19 08:21; Start 09/16/19 at 17:00; Stop 09/20/19 at 10:13; Status DC Lidocaine (Lidoderm) 1 patch DAILY TD Last administered on 09/22/19 08:26; Start 09/16/19 at 17:00 Miscellaneous (Lidoderm Patch Removal) 1 ea QHS MC Last administered on 09/21/19 20:51; Start 09/16/19 at 21:00 Ondansetron HCl (Zofran) 4 mg PRN Q6HRS PRN IVP NAUSEA/VOMITING (1st Choice) Last administered on 09/22/19 08:29; Start 09/16/19 at 17:45 Amlodipine Besylate (Norvasc) 5 mg BID PO Last administered on 09/17/19 07:58; Start 09/16/19 at 21:00; Stop 09/17/19 at 12:10; Status DC Glimepiride (Amaryl) 2 mg DAILY PO Last administered on 09/17/19 07:58; Start 09/17/19 at 09:00; Stop 09/17/19 at 12:54; Status DC Albuterol/ Ipratropium (Duoneb) 3 ml BID NEB Last administered on 09/22/19 06:51; Start 09/17/19 at 21:00 Amlodipine Besylate (Norvasc) 5 mg DAILY08 PO Last administered on 09/22/19 08:26; Start 09/17/19 at 12:15 Prochlorperazine Edisylate (Compazine) 5 mg PRN Q6HRS PRN IV NAUSEA/VOMITING (2nd Choice) Last administered on 09/22/19 05:50; Start 09/17/19 at 12:15 Glimepiride (Amaryl) 1 mg DAILY PO Last administered on 09/22/19 08:27; Start 09/17/19 at 13:00 Morphine Sulfate (Ms Contin) 30 mg BID PO Last administered on 09/18/19 08:58; Start 09/17/19 at 13:00; Stop 09/18/19 at 11:22; Status DC Iohexol (Omnipaque 300 Mg/ml) 75 ml 1X ONCE IV ; Start 09/17/19 at 13:30; Stop 09/17/19 at 13:31; Status DC Iohexol (Omnipaque 300 Mg/ml) 75 ml 1X ONCE IV Last administered on 09/18/19 08:46; Start 09/18/19 at 08:30; Stop 09/18/19 at 08:31; Status DC Fentanyl (Duragesic 50mcg/ Hr Patch) 1 patch Q3DAYS TD Last administered on 09/21/19 08:03; Start 09/18/19 at 11:30 Ketorolac Tromethamine (Toradol 30mg Vial) 30 mg PRN Q6HRS PRN IVP MILD PAIN 1- 3 Last administered on 09/22/19 08:28; Start 09/18/19 at 11:15; Stop 09/23/19 at 11:14 Acetaminophen/ Hydrocodone Bitart (Lortab 7.5/325) 1 tab PRN Q6HRS PRN PO PAIN Last administered on 09/22/19 03:45; Start 09/18/19 at 11:15 Ondansetron HCl (Zofran Odt) 4 mg PRN Q6HRS PRN PO NAUSEA/VOMITING Last administered on 09/19/19at 02:31; Start 09/19/19 at 02:30 Ondansetron HCl (Zofran Odt) 8 mg PRN Q8HRS PRN PO NAUSEA/VOMITING; Start 09/19/19 at 08:30 Bisacodyl (Dulcolax Supp) 10 mg PRN DAILY PRN ME CONSTIPATION; Start 09/19/19 at 09:45; Stop 09/20/19 at 10:13; Status DC Bisacodyl (Dulcolax Supp) 10 mg DAILY ME Last administered on 09/21/19at 08:01; Start 09/20/19 at 10:15 Docusate Sodium (Colace) 200 mg BID PO Last administered on 09/22/19at 08:27; Start 09/20/19 at 10:15 Sennosides (Senna) 8.6 mg BID PO Last administered on 09/22/19at 08:26; Start 09/20/19 at 10:15 Magnesium Citrate (Citroma) 296 ml PRN 1X PRN PO CONSTIPATION; Start 09/20/19 at 10:15 Metoclopramide HCl (Reglan Vial) 10 mg PRN Q6HRS PRN IVP NAUSEA/VOMITING; Start 09/20/19 at 17:15 Sodium Monofluorophosphate (Fleet Adult) 133 ml 1X ONCE ME ; Start 09/20/19 at 17:15; Stop 09/20/19 at 17:19; Status DC Methylprednisolone Sodium Succinate (SOLU-Medrol 40MG VIAL) 40 mg Q8HRS IV Last administered on 09/22/19at 05:50; Start 09/21/19 at 09:30 Sodium Monofluorophosphate (Fleet Adult) 133 ml PRN 1X ONCE ME Last administered on 09/21/19at 21:46; Start 09/21/19 at 18:00; Stop 09/21/19 at 18:01; Status DC Sodium Cl/Sod Bicarb/Potass Cl/ PEG (Golytely) 4,000 ml 1X PRN PO constipation; Start 09/22/19 at 10:00; Status UNV Gabapentin (Neurontin) 300 mg HS PO ; Start 09/22/19 at 21:00 Active Scripts Active Reported Glimepiride 2 Mg Tablet 2 Mg PO DAILY [place] 5-325 Tablet (Acetaminophen/Hydrocodone Bitart) 1 Each Tablet 1 Tab PO PRN Q6HRS PRN Tylenol (Acetaminophen) 325 Mg Tablet 650 Mg PO PRN Q6HRS PRN Amlodipine Besylate 5 Mg Tablet 5 Mg PO BID Duoneb 0.5-3(2.5) Mg/3 Ml (Albuterol/Ipratropium) 3 Ml Ampul.neb 3 Ml NEB BID Allergies Allergies: Coded Allergies: No Known Drug Allergies (Unverified , 02/17/19) Vitals VITALS Vital Signs Date Time Temp Pulse Resp B/P (MAP) Pulse Ox O2 Delivery O2 Flow Rate FiO2 09/22/19 08:29 18 09/22/19 08:26 89 141/78 09/22/19 07:00 98.3 90 Nasal Cannula 2.0 98.3 DILSHAD DUNBAR MD Sep 22, 2019 10:23
[2019-09-22] MEDS: BISACODYL 10 MG SUPP.RECT. PR SCH (10:36)
[2019-09-22] MEDS: POLYETHYLENE GLYCOL 3350 17 GM PACKET. PO SCH (10:36)
[2019-09-22 11:00] VITALS: BP 122/65
--- NOTE | 2019-09-22 12:39 | NUR ---
SW following. Discussed with RN, pt is from home with friend, has o2 at home, No PT/OT needs. SW will continue to follow.
[2019-09-22 15:00] VITALS: BP 117/55
--- NOTE | 2019-09-22 15:29 | NUR ---
Discharge Note: MARGARITO TRAVIS S4 [place] Discharge instructions and discharge home medications reviewed with Patient and a copy given. All questions have been answered and understanding verbalized. The following instructions and handouts were given: malnutrition,cellulitis Discontinued IV line Patient discharged to [facility] with all personal belongings.
--- NOTE | 2019-09-22 16:06 | PDOC ---
GENERAL General: vss and afebrile. awake and alert. pain has decreased with steroids. chest kendal r, heart regular, abdomen benign. ongoing radiation. oncology help appreciated. picc line in place. possibly dc tomorrow if can control pain orally. VITAL SIGNS/I&O Vital Signs/I&O: Vital Signs Date Time Temp Pulse Resp B/P (MAP) Pulse Ox O2 Delivery O2 Flow Rate FiO2 09/22/19 11:33 18 09/22/19 11:00 97.9 78 122/65 (84) 92 Nasal Cannula 2.0 97.9 I & O 09/21/19 09/21/19 09/22/19 14:59 22:59 06:59 Intake Total 350 ml 320 ml 500 ml Balance 350 ml 320 ml 500 ml ALLERGIES Allergies: Allergies Coded Allergies Type Severity Reaction Last Updated Verified No Known Drug Allergies 02/17/19 No MEDS Medications: Current Medications Medications (Trade) Dose Ordered Sig/Elisabet Route PRN Reason Start Time Stop Time Status Last Admin Dose Admin Sodium Monofluorophosphate (Fleet Adult) 133 ml PRN 1X ONCE ME 09/21/19 18:00 09/21/19 18:01 DC 09/21/19 21:46 JULIETH NELSON MD Sep 22, 2019 16:06
[2019-09-22 19:00] VITALS: BP 124/77
[2019-09-22] MEDS: PATCH REMOVAL. MC SCH (20:49)
[2019-09-22] MEDS ORDERED: GABAPENTIN 300 MG CAPSULE. PO SCH (21:00)
[2019-09-23] MEDS: HYDROcodone/APAP 7.5/325MG 1 TAB TABLET PO PRN ×2 (02:28→08:06)
[2019-09-23 03:00] VITALS: BP 128/60
[2019-09-23] MEDS: methylPREDNISolone SOD SUCC PF 40 MG/ML VIAL. IV SCH (06:17)
[2019-09-23 07:00] VITALS: BP 125/60
[2019-09-23] MEDS ORDERED: PRED20TA PO (08:03)
[2019-09-23] MEDS: LIDOCAINE (700MG/PATCH) PATCH. TD SCH (08:05)
[2019-09-23 08:06] VITALS: BP 128/60
[2019-09-23] MEDS: GLIMEPIRIDE 2 MG TABLET. PO SCH (08:06)
[2019-09-23] MEDS: amLODIPine BESYLATE 5 MG TABLET PO SCH (08:06)
[2019-09-23] MEDS: DOCUSATE SODIUM 100 MG CAPSULE. PO SCH (08:12)
[2019-09-23] MEDS: SENNOSIDES 8.6 MG TABLET PO SCH (08:13)
[2019-09-23] MEDS: BISACODYL 10 MG SUPP.RECT. PR SCH (08:13)
[2019-09-23] MEDS: POLYETHYLENE GLYCOL 3350 17 GM PACKET. PO SCH (08:13)
[2019-09-23] MEDS: IPRATRPIUM/ALBUTEROL 0.5/2.5MG 3 ML NEBU. NEB SCH (09:00)
--- NOTE | 2019-09-23 09:36 | PDOC ---
GENERAL General: Ms. Rivas was evaluated following 4 of 5 radiation treatments directed to bony metastasis. S: Overall, patient is doing well. She notes significant pain reduction and now using pain medication infrequently. Denies bowel/bladder issues, fatigue, and any other acute issues. VITAL SIGNS Vital Signs/I&O: Vital Signs Date Time Temp Pulse Resp B/P (MAP) Pulse Ox O2 Delivery O2 Flow Rate FiO2 09/23/19 08:06 18 09/23/19 08:06 81 128/60 09/23/19 07:00 98.3 90 Nasal Cannula 2.0 98.3 I & O 09/22/19 09/22/19 09/23/19 15:00 23:00 07:00 Intake Total 1550 ml Balance 1550 ml ALLERGIES Allergies: Allergies Coded Allergies Type Severity Reaction Last Updated Verified No Known Drug Allergies 02/17/19 No MEDS Medications: Current Medications Medications (Trade) Dose Ordered Sig/Elisabet Route PRN Reason Start Time Stop Time Status Last Admin Dose Admin Gabapentin (Neurontin) 300 mg HS PO 09/22/19 21:00 09/22/19 20:43 ASSESSMENT & PLAN A&P A: -61 yo female with history of small cell lung cancer s/p treatment now undergoing palliative radiation to the bony metastasis. P: -Patient to complete last radiation fraction next Thursday -Advised to continue follow up with medical oncology -Instructed to come back to the hospital or contact team if any new or worsening symptoms Physical Exam Comments GENERAL: NAD, sitting comfortably in wheelchair, nasal canula in place. NEURO: Moving all extremities. PSYCHIATRIC: Appropriate mood and affect. MOSES ASHBY MD Sep 23, 2019 09:36
--- NOTE | 2019-09-23 09:39 | PDOC ---
SUBJECTIVE Subjective S: getting RT this am O: deferred as she is in RT, d/w RN Labs: cbc nl at last check Rads: CT abd showed hepatomegaly w/ hepatic steatosis Assessment and Plan: She is a 69-year-old female with now recurrent to L sp small cell lung cancer unfortunately after completing carboplatin and etoposide 4 in Apr 2019 and pulm radiotherapy in May 2019, and PCI completed in Jun 2019. initially atezolizumab had been given for presumed adrenal metastasis though dc'd after adrenal biopsy negative, though now she has recurrence in less than 6 months from treatment completion. Back pain: fentanyl patch per primary, added steroids, lidocaine patch, prn's, getting RT, added gabapentin 300 hs, titrate prn Recurrent small cell: Appreciate Dr. Mckinnon, getting RT pall to L-spine, will plan for CT chest prior to beginning second line chemotherapy, she'll follow-up with Dr. Bowman as an outpatient after radiotherapy complete to consider second line chemotherapy History of constipation: colace, miralax and senna w/ suppository scheduled, may refuse if not needed, added mag citrate and fleet, may use colon prep prn Disposition: After adequate pain control and bowels improved, today possibly, would like her to have pall care at home set up soon Thank you kindly and please do not hesitate to call with further questions. OBJECTIVE Vital Signs Vital Signs Date Time Temp Pulse Resp B/P (MAP) Pulse Ox O2 Delivery O2 Flow Rate FiO2 09/23/19 08:06 18 09/23/19 08:06 81 128/60 09/23/19 07:00 98.3 76 18 125/60 (81) 90 Nasal Cannula 2.0 98.3 09/23/19 03:28 20 Room Air 09/23/19 03:00 98.0 81 18 128/60 (82) 90 Nasal Cannula 2.0 98.0 09/23/19 02:28 20 93 Nasal Cannula 2.0 09/22/19 23:00 18 09/22/19 19:39 93 Nasal Cannula 2.0 09/22/19 19:33 18 93 Nasal Cannula 2.0 09/22/19 19:00 98.1 88 16 124/77 (93) 92 Nasal Cannula 2.0 98.1 09/22/19 18:33 18 Room Air 1/2/20 15:00 98.5 79 18 117/55 (75) 93 Nasal Cannula 2.0 98.5 09/22/19 11:33 18 09/22/19 11:00 97.9 78 18 122/65 (84) 92 Nasal Cannula 2.0 97.9 09/22/19 10:33 18 I & O Intake and Output 09/23/19 07:00 Intake Total 1550 ml Balance 1550 ml Intake Oral 1550 ml # Voids 4 DILSHAD ROBIN MD Sep 23, 2019 09:39
--- NOTE | 2019-09-23 10:24 | NUR ---
SW following. Discussed with RN, pt discharging home today with self care. No SW needs.
--- NOTE | 2019-09-23 10:47 | NUR ---
radiation treatment given today-last tx on thursday09-26-19.
--- NOTE | 2019-09-23 11:40 | NUR ---
Discharge Note: MARGARITO TRAVIS S4 [place] Discharge instructions and discharge home medications reviewed with Patient and a copy given. All questions have been answered and understanding verbalized. Discontinued IV lines Patient discharged to home wiht all pesonal belongings
--- NOTE | 2019-09-23 22:33 | DS ---
DATE OF DISCHARGE: 09/23/2019 PRIMARY DIAGNOSES: Metastatic small cell carcinoma of the lung ____. ADDITIONAL DIAGNOSES: Hypertension, diabetes, and COPD. CHIEF COMPLAINT AND HISTORY OF PRESENT ILLNESS: This is a 69-year-old white female who is well known to me from followup in the office. She has a history of small cell carcinoma, which has been treated. She has had several days of lower back pain, more to the right with some radiation down the right leg, presented to the Emergency Room where she appeared to have metastatic lytic lesions in the lower lumber spine. SUMMARY OF STAY: The patient was admitted. Oncology and radiation therapy both saw the patient in consultation. She did receive radiation therapy and chemotherapy. ____ was treated with steroids, pain pills and eventually was improved to the point where it felt she could be dismissed with her last radiation treatment to be done on Thursday following this discharge. Oncology is going to plan upon second-line chemotherapy for the small cell carcinoma as an outpatient. She was felt ready for dismissal and this was accomplished. DISPOSITION: The patient is discharged to home. DIET: She is discharged on a regular diet. ACTIVITY: As tolerated. FOLLOWUP: Office in 1 week. DISCHARGE MEDICATIONS: ____ 40 daily for 3 days, 30 for 3 days, 20 for 3 days, 10 for 3 days, 5 for 2 days and stop. JULIETH NELSON MD DR: YANELIS/salud JOB#: [id number] / [id number]
== END 2019-09-23 11:40 | disposition home or self-care (01) | DRG 542 ==
LOC: ER 07:52 → 4 NORTH 11:24
PROVIDERS: ADMIT Family Medicine; ATTEND Family Medicine
DX: C79.51 Secondary malignant neoplasm of bone (principal); J96.01 Acute respiratory failure with hypoxia; C34.90 Malignant neoplasm of unspecified part of unspecified bronchus or lung; I42.9 Cardiomyopathy, unspecified; D69.3 Immune thrombocytopenic purpura; E27.40 Unspecified adrenocortical insufficiency; J44.9 Chronic obstructive pulmonary disease, unspecified; M19.90 Unspecified osteoarthritis, unspecified site; E11.9 Type 2 diabetes mellitus without complications; M85.80 Other specified disorders of bone density and structure, unspecified site; K59.00 Constipation, unspecified; E89.0 Postprocedural hypothyroidism; I50.9 Heart failure, unspecified; I11.0 Hypertensive heart disease with heart failure; M54.16 Radiculopathy, lumbar region; W19.XXXA Unspecified fall, initial encounter; Y93.89 Activity, other specified; Y92.89 Other specified places as the place of occurrence of the external cause; Y99.8 Other external cause status; Z86.19 Personal history of other infectious and parasitic diseases; Z86.2 Personal history of diseases of the blood and blood-forming organs and certain disorders involving the immune mechanism; Z85.118 Personal history of other malignant neoplasm of bronchus and lung; Z99.81 Dependence on supplemental oxygen; Z87.891 Personal history of nicotine dependence; Z92.3 Personal history of irradiation; Z92.21 Personal history of antineoplastic chemotherapy; Z86.73 Personal history of transient ischemic attack (TIA), and cerebral infarction without residual deficits; Z95.2 Presence of prosthetic heart valve; Z98.49 Cataract extraction status, unspecified eye; Z82.49 Family history of ischemic heart disease and other diseases of the circulatory system; Z82.61 Family history of arthritis; Z80.9 Family history of malignant neoplasm, unspecified
CPT/HCPCS: 36415; 72131; 74170; 77290; 77306; 77334; 77387; 77412; 77417; 80053; 80076; 81001; 85007; 85025; 94640; 94760; 96372; 99285; J0780; J1885; J2270; J2360; J2405; J2920; J3010; J7620; Q0162; Q9967; G0378

== ENCOUNTER → 2019-10-06 | Outpatient (CLI) | payer MEDICARE, MEDICAID ==
[2019-09-23 08:06] VITALS: BP 128/60
[~2019-10-06] MED LIST changes: +CONTRAST GIVEN. MC PRN; +IOHEXOL 240 MG/ML 50ML VIAL. PO ONE; +IOHEXOL 300 MG/ML 100ML VIAL. IV ONE; +OXYC1TAB22 PO
--- NOTE | 2019-10-06 12:37 | RAD ---
EXAM: CT Chest with IV contrast INDICATION: Small cell lung cancer TECHNIQUE: Multi-detector row CT images were acquired from the thoracic inlet through the upper abdomen with the use of IV contrast. Sagittal and coronal images were acquired from the transaxial data. All CT scans performed at this facility utilize dose optimization techniques as appropriate to the exam, including the following: Automated exposure control and adjustment of the mA and/or KV according to patient size (this includes techniques or standardized protocols for targeted exams where dose is indication/reason for exam). IV CONTRAST: Administered DLP 986.5 mGycm COMPARISON: CT chest with IV contrast February 10, 2019 FINDINGS: CARDIOVASCULAR: Coronary calcifications. Normal heart size. Normal aortic caliber. The pulmonary arteries enhance appropriately. Previously evident thrombus in the right lower lobe pulmonary vein has since resolved. MEDIASTINUM & RYAN: Previously evident mediastinal and right hilar adenopathy has resolved. LUNGS: There has been interval decrease in size of the right lower lobe lung mass abutting the inferior right hilum. It now measures 2.5 cm AP by 1.6 cm mediolateral by 2.5 cm craniocaudal, down from 4.3 x 4.3 x 5.7 cm on the most recent comparison examination by my measurements. PLEURAL SPACE: No pleural effusions or pneumothorax. OSSEOUS & SOFT TISSUE: Unremarkable ABDOMEN: No change in the left adrenal 2.8 cm mass. Partially imaged findings of cholecystectomy and left renal 1.7 cm IMPRESSION: Evidence of a positive treatment response as shown by decrease in size of the primary right lower lobe lung mass and resolution of right hilar and mediastinal adenopathy evident previously. Electronically signed by: Kat Naik MD (10/06/2019 12:35 PM) [facility]
== END | disposition home or self-care (01) ==
LOC: CT 07:43
PROVIDERS: ATTEND Internal Medicine Hematology & Oncology
DX: C34.90 Malignant neoplasm of unspecified part of unspecified bronchus or lung (principal); I25.10 Atherosclerotic heart disease of native coronary artery without angina pectoris; R91.8 Other nonspecific abnormal finding of lung field; Z90.49 Acquired absence of other specified parts of digestive tract
CPT/HCPCS: 71260; 74177; Q9966; Q9967